=== PATIENT | female | born 1945 | race Asian ===

== ENCOUNTER 2020-01-19 19:16 | Emergency (ER) | payer MEDICARE, SELFPAY ==
--- NOTE | ~2020-01-19 | CT_ITS ---
EXAMINATION: CT brain wo con DATE: 01/19/2020 22:34 INDICATION: Dizziness TECHNIQUE: Computed tomography (CT) of the head was performed without intravenous contrast. Sagittal and coronal reconstructions were performed. The mA was adjusted according to patient size. Iterative reconstruction technique was employed. The dose-length product was 605.33 mGy-cm. COMPARISON: None FINDINGS: No acute intracranial hemorrhage, acute infarction or abnormal extra axial fluid collection. There is mild scattered white matter hypoattenuation consistent with chronic small vessel ischemic disease. S ymmetric prominence of the sulci and ventricles consistent with moderate age-appropriate diffuse cere bral volume loss. No mass/mass effect. Bilateral likely age-related basal ganglia calcifications. Ch anges of bilateral intraocular lens replacement. Chronic old blowout fracture of the medial wall of t he right orbit. Mucosal thickening the bilateral ethmoid and maxillary sinuses. Mastoid air cells and middle ear cavities are clear. Intracranial calcified cerebral atherosclerosis is noted. IMPRESSION: 1. No acute intracranial process. 2. Age-related changes including moderate diffuse volume loss and mild scattered white matter hypoatt enuation consistent with chronic small vessel ischemic disease. Reviewed, dictated and finalized at location A. IMPRESSION: 1. No acute intracranial process. 2. Age-related changes including moderate diffuse volume loss and mild scattere d white matter hypoattenuation consistent with chronic small vessel ischemic di sease.
[2020-01-19 19:26] VITALS: BP 208/77; PULSE 69; RESP 16; TEMP 36.4; O2SAT 100
--- NOTE | 2020-01-19 19:30 | ECG_ITS ---
Measurements Intervals [place] Rate: 64 P: 17 HI: 208 QRS: 22 QRSD: 93 T: -1 QT: 446 QTc: 463 Interpretive Statements SINUS RHYTHM VOLTAGE CRITERIA FOR LVH BORDERLINE T WAVE ABNORMALITY- INFERIOR LEADS BASELINE WANDER- I, II, III, V3 BORDERLINE ECG Electronically Signed On 01-20-2020 7:30:59 CDT by Luis Duke D.O.
[2020-01-19 19:45] LABS: Basophils Percent Auto 0.3 % (0.2-1.2); Eosinophils Absolute Auto 0.1 K/mm3 (0-0.3); Hematocrit 39.4 % (37.0-47.0); Hemoglobin 13.4 g/dL (12.0-15.0); Immature Granulocyte Absolute 0.02 K/mm3 (0.00-0.031); Immature Granulocyte Percent A 0.3 % (0-0.5); Lymphocytes Absolute Auto 1.86 K/mm3 (0.9-3.2); Lymphocytes Percent Auto 29.6 % (18.3-44.2); Mean Platelet Volume 10.1 fl (7.4-10.4); Monocytes Absolute Auto 0.5 K/mm3 (0.1-0.6); Monocytes Percent Auto 7.6 % (2.6-8.5); Neutrophils Absolute Auto 3.9 K/mm3 (1.3-6.7); Neutrophils Percent Auto 61.2 % (45.5-73.1); Platelet Count Result 229 k/mm3 (150-375); Red Blood Count 4.19 M/mm3 (4.2-5.4); Red Cell Distribution Width 12.6 % (11.5-14.5); White Blood Count 6.3 K/mm3 (4.5-10.0)
[2020-01-19 19:55] LABS: Anion Gap 10 mmol/L (8-16); Blood Urea Nitrogen 31 mg/dL (7-17); Calcium 9.3 mg/dL (8.4-10.2); Carbon Dioxide 26 mmol/L (22-30); Chloride 96 mmol/L (98-107); Estimated CRCL calculation 25 ml/min; Estimated Glomerular Filt Rate 32; Glucose 170 mg/dL (65-105); Potassium 3.4 mmol/L (3.4-5.0); Sodium 132 mmol/L (137-145)
[2020-01-19 21:30] VITALS: BP 224/91; PULSE 67
[2020-01-19 21:35] VITALS: BP 237/104; PULSE 71
[2020-01-19 21:38] VITALS: BP 236/99; PULSE 89
--- NOTE | 2020-01-19 21:38 | ED.DIZZY ---
HPI - Dizziness General Chief Complaint: Dizziness Stated Complaint: dizziness Time Seen by Provider: 01/19/20 21:16 Source: patient Mode of arrival: ambulatory Limitations: language barrier and dementia History of Present Illness HPI Narrative: This patient is a 74 year old Latvian female with history of dementia and hypertension who presents for evaluation of dizziness. Patient's states she has dementia and she is forgetting how to write Latvian and speak hungarian so he is helping with history. He states around 4 pm she was dizzy when she woke up from a nap. She described to nursing that she had spinning. She is laying in bed and she reports her symptoms have resolved. She denies any other symptoms. She is hypertensive and her states it is difficulty to get her to take her medication. Related Data Allergies Allergy/AdvReac Type Severity Reaction Status Date / Time No Known Allergies Allergy Unverified 12/19/16 16:35 Review of Systems Review of Systems: All systems reviewed & are unremarkable except as noted in HPI and below Constitutional: Constitutional: Denies chills and Denies fever(s) Eyes: Eyes: Reports no additional eye complaints ENT: Denies dysphagia, Denies epistaxis, Denies nasal congestion and Denies sore throat Cardiovascular: Cardiovascular: Denies chest pain Respiratory: Respiratory: Denies cough and Denies dyspnea Gastrointestinal: Gastrointestinal: Denies abdominal pain, Denies nausea and Denies vomiting Neurologic: Reports dizziness, Denies headache(s), Denies focal weakness, Denies numbness and Denies weakness PMFSH Past Medical History Medical History (Updated 01/20/20 @ 00:37 by Linh Marin MD) Arthritis Bilateral cataracts Chronic back pain Hip fracture, right HTN (hypertension) Sciatica Scoliosis Surgical History Surgical History (Updated 05/05/19 @ 16:22 by Moody Goodrich) History of cataract extraction with lens replacement Bilateral History of open reduction and internal fixation (ORIF) procedure Right hip Social History Social History (Updated 05/05/19 @ 16:22 by Moody Goodrich) Smoking status: Former smoker Gender identity (if verbalized by the patient): Female Exam Const: General: no acute distress and alert Other: oriented to person HENMT: Head: normocephalic and atraumatic Ears: TM's normal bilaterally General nose exam: Normal external nose present Face and sinus: normal facial exam and face symmetric Mouth: Yes Normal oral and palatal mucosa present and Yes lip normal Throat: posterior oropharynx normal, tonsils normal and uvula midline Eyes: Pupils: Equal, round and reactive pupils present EOM: EOMs intact bilaterally Chest: Chest palpation & inspection: normal inspection of the chest Resp: Effort & Inspection: normal respiratory effort and no retractions Auscultation: clear to auscultation bilaterally Cardio: Rate: regular rate Rhythm: regular rhythm Heart sounds: no murmurs GI: GI Palp: Yes Soft to palpation, No Firmness to palpation present (GI) and No Tenderness to palpation present (GI) Auscultation: normal bowel sounds Back/Spine/Pelvis: Back: no CVA tenderness Skin: General skin exam: normal color Rashes: no rashes Neuro: General: patient oriented x3, moves all extremities, no meningeal signs, no focal motor deficits and CN's II-XI intact bilaterally Cranial nerves: Yes Nystagmus not present Speech: normal speech Motor exam (neuro): 5/5 motor strength present throughout, Pronator motor function not present and No tremor noted Sensory Exam: normal sensation Coordination: [id number] test normal Course Reevaluation(s) Reevaluation #1: PAtient has no complaints. she always have high blood pressure. This is her baseline. I discussed with her they need to call her PCP on tuesday to get assessed for BP. Date: 01/20/20 Time: 00:33 Vital Signs Vital signs: Vital Signs Temperature 97.6 F 0
[2020-01-19 22:36] VITALS: PULSE 68
[2020-01-19] MEDS: METOPROLOL TARTRATE 50 MG TAB 25 MG PO (22:36)
[2020-01-19] MEDS: MECLIZINE HCL 25 MG TABLET PO (22:37)
[2020-01-19 23:30] VITALS: BP 197/88; PULSE 94; RESP 18; O2SAT 99
[2020-01-19] MEDS: amLODIPine BESYLATE 2.5 MG TABLET PO (23:54)
[2020-01-20 00:26] VITALS: BP 193/94; PULSE 55; RESP 14; O2SAT 99
[2020-01-20 00:45] VITALS: BP 147/78; PULSE 55; RESP 15; O2SAT 98
== END 2020-01-20 00:45 | disposition home or self-care (01) ==
PROVIDERS: Family Medicine; Emergency Provider General Practice; PCP Internal Medicine
DX: R42 Dizziness and giddiness (principal); I10 Essential (primary) hypertension; F03.90 Unspecified dementia, unspecified severity, without behavioral disturbance, psychotic disturbance, mood disturbance, and anxiety; M19.90 Unspecified osteoarthritis, unspecified site; Z98.42 Cataract extraction status, left eye; Z98.41 Cataract extraction status, right eye; Z96.1 Presence of intraocular lens; Z87.891 Personal history of nicotine dependence; R94.31 Abnormal electrocardiogram [ECG] [EKG]
CPT/HCPCS: 36415; 70450; 80048; 85025; 93005; 99284; A9270

== ENCOUNTER 2020-04-17 12:41 | Emergency (ER) | payer MEDICARE, SELFPAY ==
[2020-04-17 12:47] VITALS: BP 156/93; PULSE 64; RESP 16; TEMP 35.9; O2SAT 100
--- NOTE | 2020-04-17 13:51 | ED.DENTAL ---
HPI - Dental/Oral General Chief complaint: Dental/Oral Stated complaint: DENTAL PAIN Time Seen by Provider: 04/17/20 12:55 History of Present Illness HPI Narrative: Patient is a 74-year-old female who presents with dental pain and upper lip swelling. She had some dental work performed last week. She is post follow-up with her dentist on 04/22/2020. She made the appointment yesterday. Her upper lip is swelling and pain is radiating into her nose. She has had some blood come out of her lip earlier. No difficulty breathing or swallowing. No fevers or chills or sweats. Related Data Home Medications Medication Instructions Recorded Confirmed ergocalciferol (vitamin D2) 04/17/20 metoprolol succinate PO 04/17/20 oxybutynin chloride mg PO 04/17/20 pioglitazone mg 04/17/20 simvastatin mg 04/17/20 Allergies Allergy/AdvReac Type Severity Reaction Status Date / Time No Known Allergies Allergy Verified 04/17/20 13:03 Review of Systems Constitutional: Constitutional: Denies chills, Denies fever(s) and Denies weakness ENT: Comments: Lip and nose pain. Dental pain Respiratory: Respiratory: Denies cough and Denies dyspnea PMFSH Past Medical History Medical History (Updated 04/17/20 @ 13:59 by Jatin Salas MD) Arthritis Bilateral cataracts Chronic back pain Hip fracture, right HTN (hypertension) Sciatica Scoliosis Surgical History Surgical History (Updated 05/05/19 @ 16:22 by Moody Goodrich) History of cataract extraction with lens replacement Bilateral History of open reduction and internal fixation (ORIF) procedure Right hip Social History Social History (Updated 05/05/19 @ 16:22 by Moody Goodrich) Smoking status: Former smoker Gender identity (if verbalized by the patient): Female Exam Narrative: Exam Narrative: GENERAL: Well-appearing, well-nourished, and in no acute distress. HEAD: Normocephalic, atraumatic. ENT: Mucous membranes moist. Swelling to the upper lip. Abscess noted above tooth #8 and actively draining pus. Mild swelling into the nostrils bilaterally. NEURO: Alert and oriented x3. PSYCH: Normal mood and affect. Course Course Emergency Course: Augmentin and Simms for home. Vital Signs Vital signs: Vital Signs Temperature 96.6 F L 04/17/20 12:47 Pulse Rate 64 04/17/20 12:47 Respiratory Rate 16 04/17/20 12:47 Blood Pressure 156/93 H 04/17/20 12:47 Pulse Oximetry 100 04/17/20 12:47 Temperature 96.6 F L 04/17/20 12:47 Pulse Rate 64 04/17/20 12:47 Respiratory Rate 16 04/17/20 12:47 Blood Pressure 156/93 H 04/17/20 12:47 Pulse Oximetry 100 04/17/20 12:47 Discharge Plan Discharge Clinical Impression: Dental abscess Patient Disposition: Home, Self-Care Condition: Stable Instructions: Dental Abscess (ED) Additional Instructions: Return to the ER if you have chest pain or shortness of breath, you cannot keep down food or water, you lose consciousness, you have additional concerns. Prescriptions: New amoxicillin-pot clavulanate [Augmentin] 875-125 mg tablet 1 tablet PO Q12H Qty: 20 RF: 0 hydrocodone-acetaminophen 5-325 mg tablet 1 tablet PO Q6H PRN (Reason: pain) Qty: 20 RF: 0 No Action tramadol 50 mg tablet 50 mg PO Q6H PRN (Reason: pain) Qty: 20 RF: 0 meclizine 25 mg tablet 25 mg PO TID PRN (Reason: dizziness) Qty: 10 RF: 0 pioglitazone 15 mg tablet RF: 0 oxybutynin chloride 10 mg tablet extended release 24hr PO RF: 0 metoprolol succinate 50 mg tablet extended release 24 hr PO RF: 0 simvastatin 40 mg tablet RF: 0 ergocalciferol (vitamin D2) RF: 0 Follow-up/Referrals: Annette,Luis F Morgan MD [Primary Care Provider] - Stand Alone Forms: Work/School Release IP
[2020-04-17 14:27] VITALS: BP 142/87; PULSE 66; RESP 14; O2SAT 98
== END 2020-04-17 14:29 | disposition home or self-care (01) ==
PROVIDERS: Emergency Provider Emergency Medicine; PCP Internal Medicine
DX: K04.7 Periapical abscess without sinus (principal); M19.90 Unspecified osteoarthritis, unspecified site; I10 Essential (primary) hypertension; Z98.42 Cataract extraction status, left eye; Z98.41 Cataract extraction status, right eye; Z96.1 Presence of intraocular lens
CPT/HCPCS: 99283

== ENCOUNTER 2020-05-31 08:20 | Emergency (ER) | payer MEDICARE, SELFPAY ==
[2020-05-31] VITALS (11 sets, daily range): BP systolic 169–213; BP diastolic 68–116; PULSE 8–133; RESP 12–25; TEMP 36.3; O2SAT 93–99
--- NOTE | ~2020-05-31 | XR_ITS ---
EXAMINATION: XR hand LT min 3V DATE: 05/31/2020 09:06 INDICATION: Left fifth digit pain and bruising post fall TECHNIQUE: Posteroanterior, oblique and lateral views of the left hand were obtained. COMPARISON: None. FINDINGS: 1 mm distraction of a small intra-articular avulsion fracture along the dorsal rim of the base of the left second middle phalanx. There is overlying soft tissue swelling. There is flexion at the proxima l interphalangeal joint. Old healed fracture deformity of the fifth proximal phalanx. Otherwise reyna l alignment throughout the remainder of the hand with no other fractures identified. Mild to moderate polyarticular osteoarthritis most prominent at the first carpometacarpal and a few distal interphala ngeal joints. Diffuse osteopenia. A few scattered atherosclerotic calcifications. IMPRESSION: 1. Small minimally distracted dorsal plate avulsion fracture at the base of the left fifth middle pha lanx. Reviewed, dictated and finalized at location A. [place] TEACHER IMPRESSION: 1. Small minimally distracted dorsal plate avulsion fracture at the base of the left fifth middle phalanx.
--- NOTE | ~2020-05-31 | CT_ITS ---
EXAMINATION: CT cervical spine wo con DATE: 05/31/2020 10:48 INDICATION: Neck pain post fall with head injury TECHNIQUE: Computed tomography (CT) of the cervical spine was performed without intravenous contrast. Automated exposure control and iterative reconstruction technique were employed. The dose-length pro duct was 605.33 mGy-cm. COMPARISON: None FINDINGS: Minimal cervical fracture curvature and minimal kyphosis centered at C5-C6 where there is moderate di sc height loss and degenerative endplate change is severe bilateral uncovertebral osteoarthritis. Mod erate osteoarthritis at the atlantoaxial articulation with surrounding calcified pannus. Vertebral tila dy heights are normal. No acute fractures. Remaining disc heights are relatively preserved. Severe fa cet osteoarthritis on the right at C5-C6. Otherwise mild to moderate facet osteoarthritis remainder o f the cervical spine. Atherosclerotic calcification is at the bilateral carotid arteries. There is an subcutaneous edema tracking along the right posterior side of the neck caudal to the right parieto-o ccipital scalp hematoma which is more fully appreciated on the head CT. Likely benign 6 mm hypodense right thyroid nodule. Small amount of gas in the caudal right internal jugular vein and subclavian ve in likely related to peripheral IV placement. Cervical soft tissues are otherwise unremarkable. There are some smooth septal line thickening and mild dependent groundglass opacities at the bilateral api irma consistent with mild pulmonary edema. IMPRESSION: 1. Moderate cervical spondylosis. No acute osseous abnormality. 2. Previously described right parieto-occipital scalp hematoma which is more completely visualized on the head CT. 3. Mild pulmonary edema at the apices of the lungs. Reviewed, dictated and finalized at location A. [employer] APPLICATIONS DEVELOPER IMPRESSION: 1. Moderate cervical spondylosis. No acute osseous abnormality. 2. Previously described right parieto-occipital scalp hematoma which is more co mpletely visualized on the head CT. 3. Mild pulmonary edema at the apices of the lungs.
--- NOTE | ~2020-05-31 | CT_ITS ---
EXAMINATION: CT brain wo con DATE: 05/31/2020 10:48 INDICATION: Fall with head injury and nausea TECHNIQUE: Computed tomography (CT) of the head was performed without intravenous contrast. Sagittal and coronal reconstructions were performed. The mA was adjusted according to patient size. Iterative reconstruction technique was employed. The dose-length product was 605.33 mGy-cm. COMPARISON: head CT dated 06/20/19 FINDINGS: Large right parietal scalp hematoma. No calvarial fracture. No acute intracranial hemorrhage, acute i nfarction or abnormal extra axial fluid collection. There is mild scattered white matter hypoattenuat ion consistent with chronic small vessel ischemic disease. Symmetric prominence of the sulci and vent ricles consistent with moderate age-appropriate diffuse cerebral volume loss. Kinsinger bilateral lik diana age-related basal ganglia calcifications. Extra-axial 7 mm peripherally calcified nodule along th e inner table of the anterior most right parietal bone which could represent either a meningioma or b e related to mild hyperostosis frontalis which is seen anteriorly along the frontal bone. Changes of bilateral intraocular lens replacement. Chronic blowout fracture of the medial wall of the right orbi t. The callosal thickening in the right maxillary and bilateral ethmoid sinuses. Mastoid air cells an d middle ear cavities are clear. Intracranial calcified cerebral atherosclerosis is noted. IMPRESSION: 1. No acute fracture or acute intracranial process. 2. Age-related changes including moderate diffuse volume loss and mild scattered white matter hypoatt enuation consistent with chronic small vessel ischemic disease. 3. 7 mm peripherally calcified likely benign meningioma overlying the right frontal lobe. Reviewed, dictated and finalized at location A. ISH PROFESSOR IMPRESSION: 1. No acute fracture or acute intracranial process. 2. Age-related changes including moderate diffuse volume loss and mild scattere d white matter hypoattenuation consistent with chronic small vessel ischemic di sease. 3. 7 mm peripherally calcified likely benign meningioma overlying the ri ght frontal lobe.
--- NOTE | 2020-05-31 08:56 | ECG_ITS ---
Measurements Intervals [place] Rate: 122 P: [place]: 0 QRS: 84 QRSD: 91 T: -14 QT: 296 QTc: 422 Interpretive Statements ATRIAL FIBRILLATION WITH RAPID VENTRICULAR RESPONSE ST-T WAVE ABNORMALITY IN INF/LAT LEADS- CONSIDER ISCHEMIA ABNORMAL ECG Electronically Signed On 05-31-2020 14:18:36 E COMMERCE MANAGER by Luis Duke D.O.
--- NOTE | 2020-05-31 09:04 | ED.GENADULT ---
HPI - General Adult General Chief complaint: Head Injury Stated complaint: Head Injury Tuesday Time Seen by Provider: 05/31/20 08:46 History of Present Illness HPI narrative: Patient is a 75-year-old female who presents the emergency department with chief complaint of head injury. The patient reports that she fell approximately 2 days ago and reports that she has had a headache since then. Patient reports that she has felt extremely weak since then and also has a headache. She also reports that she injured her left fifth digit and has bruising present on the finger. Patient denies chest pain denies shortness of breath but does report that she has a nauseated feeling throughout her body. Patient reports that she has no prior history of dysrhythmia is currently just on an aspirin she reports that she did not take her blood pressure medication this morning. Related Data Home Medications Medication Instructions Recorded Confirmed aspirin 81 mg PO DAILY 05/31/20 atorvastatin 40 mg PO DAILY 05/31/20 cholecalciferol (vitamin D3) 25 mcg PO DAILY 05/31/20 finasteride 5 mg PO DAILY 05/31/20 metoprolol succinate 25 mg PO DAILY 05/31/20 Allergies Allergy/AdvReac Type Severity Reaction Status Date / Time No Known Allergies Allergy Verified 05/31/20 08:35 Review of Systems Review of Systems: Narrative: A 10 system review of systems was completed on the patient and is negative except for what is stated in the HPI. Nursing and ancillary documentation was reviewed. [facility] Past Medical History Medical History Arthritis Bilateral cataracts Chronic back pain Hip fracture, right HTN (hypertension) Sciatica Scoliosis Surgical History Surgical History History of cataract extraction with lens replacement Bilateral History of open reduction and internal fixation (ORIF) procedure Right hip Social History Social History Smoking status: Former smoker Gender identity (if verbalized by the patient): Female Exam Narrative: Exam Narrative: GENERAL: Well-appearing, well-nourished, and in no acute distress. HEAD: Normocephalic, atraumatic. There is tenderness to palpation in the occipital region of the scalp EYES: PERRLA and EOMI. ENT: Nares clear, no rhinorrhea or epistaxis. Mucous membranes moist. NECK: Supple. There is mild tenderness to palpation in the cervical spine no bony step-off noted. CHEST: Clear to auscultation. No respiratory distress. HEART: Irregularly irregular rate and rhythm with tachycardia. No murmur heard. Normal peripheral pulses. ABDOMEN: Soft, nontender, nondistended, normal active bowel sounds. EXTREMITIES: Normal range of motion. No edema. There is a deformity of the left fifth finger with bruising. SKIN: Warm, dry, no rash. NEURO: No focal deficits. Alert and oriented x3. PSYCH: Normal mood and affect. Course Course Emergency Course: Patient was admitted to the hospital. Prior to going upstairs the patient decided that she did not want to stay in the hospital she understood there was a risk of having a stroke or heart attack or . Vital Signs Vital signs: Vital Signs Temperature 36.3 C L 05/31/20 08:32 Pulse Rate 105 H 05/31/20 08:32 Respiratory Rate 18 05/31/20 08:32 Blood Pressure 213/116 H 05/31/20 08:32 Pulse Oximetry 99 05/31/20 08:32 Temperature 36.3 C L 05/31/20 08:32 Pulse Rate 90 05/31/20 16:11 Respiratory Rate 25 H 05/31/20 16:11 Blood Pressure 178/68 H 05/31/20 16:11 Pulse Oximetry 96 05/31/20 16:11 Medical Decision Making Vital Signs Vital Signs: Vital Signs Temperature 36.3 C L 05/31/20 08:32 Pulse Rate 105 H 05/31/20 08:32 Respiratory Rate 18 05/31/20 08:32 Blood Pressure 213/116 H 05/31/20 08:32 Pulse Oximetry 99 05/31/20 08:32
[2020-05-31] MEDS: SODIUM CHLORIDE 0.9% IV 1,000 ML 999 ML IV CONT (09:07)
[2020-05-31] MEDS: ONDANSETRON INJ 4 MG/2 ML VIAL IV PUSH (09:07)
[2020-05-31] MEDS: METOPROLOL TARTRATE INJ 5 MG/5 ML VIAL IV PUSH ×2 (09:09→13:00)
[2020-05-31 09:14] LABS: Basophils Percent Auto 0.4 % (0.2-1.2); Eosinophils Percent Auto 0.1 % (0-4.4); Hematocrit 37.6 % (37.0-47.0); Hemoglobin 12.5 g/dL (12.0-15.0); Immature Granulocyte Absolute 0.04 K/mm3 (0.00-0.031); Immature Granulocyte Percent A 0.6 % (0-0.5); Lymphocytes Absolute Auto 0.84 K/mm3 (0.9-3.2); Mean Corpuscular HGB Conc 33.2 g/dl (32-36); Mean Corpuscular Hemoglobin 31.7 pg (26-34); Mean Corpuscular Volume 95.4 fl (80-100); Mean Platelet Volume 9.9 fl (7.4-10.4); Monocytes Absolute Auto 0.4 K/mm3 (0.1-0.6); Monocytes Percent Auto 5.6 % (2.6-8.5); Neutrophils Absolute Auto 5.7 K/mm3 (1.3-6.7); Neutrophils Percent Auto 81.3 % (45.5-73.1); Platelet Count Result 191 k/mm3 (150-375); Red Blood Count 3.94 M/mm3 (4.2-5.4); Red Cell Distribution Width 13.2 % (11.5-14.5)
[2020-05-31 09:28] LABS: Lactic Acid Reflex 0.9 mmol/L (0.7-2.1)
[2020-05-31 09:29] LABS: Alanine Aminotransferase 13 U/L (4-35); Albumin Level 4.3 g/dL (3.5-5.1); Alkaline Phosphatase 64 U/L (38-126); Anion Gap 10 mmol/L (8-16); Aspartate Amino Transferase 31 U/L (14-36); Bilirubin,Total 0.9 mg/dL (0.2-1.3); Blood Urea Nitrogen 19 mg/dL (7-17); Calcium 9.5 mg/dL (8.4-10.2); Carbon Dioxide 27 mmol/L (22-30); Chloride 99 mmol/L (98-107); Estimated CRCL calculation 33 ml/min; Estimated Glomerular Filt Rate 48; Glucose 163 mg/dL (65-105); Potassium 3.8 mmol/L (3.4-5.0); Sodium 136 mmol/L (137-145)
[2020-05-31 09:33] LABS: INR 0.9; Prothrombin Time 12.9 Seconds (11.1-14.7)
[2020-05-31 09:34] LABS: Partial Thromboplastin Time 26.9 SECONDS (22.3-36.8)
[2020-05-31 09:39] LABS: Add Urine Microscopic? YES; Appearance Urine Clear (Clear); Bacteria Urine Trace /hpf; Bilirubin Urine Negative (Negative); Blood Urine Negative (Negative); Color Urine Straw (Yellow); Glucose Urine UA 1+ mg/dL (Negative); Ketones Urine Trace mg/dL (Negative); Leukocyte Esterase Ur Negative LEU/UL (Negative); Mucus Urine Rare /lpf; Nitrate Urine Negative (Negative); Protein Urine 2+ mg/dL (Negative); RBC Urine 0-2 /hpf (0-2); Specific Grav Ur 1.011 (1.001-1.035); Squamous Epithelial Cell Urine Occasional /hpf (Few); Urobilinogen Urine Negative mg/dL (<2.0); WBC Urine 0-3 /hpf
[2020-05-31] MEDS: ASPIRIN 81 MG CHEWABLE TABLET 324 MG PO (11:18)
== END 2020-05-31 16:11 | disposition left against medical advice (07) ==
PROVIDERS: Emergency Provider Emergency Medicine; PCP Internal Medicine
DX: S09.90XA Unspecified injury of head, initial encounter (principal); R79.89 Other specified abnormal findings of blood chemistry; I48.91 Unspecified atrial fibrillation; M19.90 Unspecified osteoarthritis, unspecified site; I10 Essential (primary) hypertension; Z98.42 Cataract extraction status, left eye; Z98.41 Cataract extraction status, right eye; Z96.1 Presence of intraocular lens; Z87.891 Personal history of nicotine dependence; Z79.82 Long term (current) use of aspirin; W19.XXXA Unspecified fall, initial encounter; R94.31 Abnormal electrocardiogram [ECG] [EKG]
CPT/HCPCS: 36415; 51701; 70450; 72125; 73130; 80053; 81001; 83605; 84484; 85025; 85610; 85730; 93005; 96361; 96374; 96375; 96376; 99284; A9270; J2405; J7030

== ENCOUNTER 2021-03-27 09:49 | Inpatient (IN) | payer MEDICARE, SELFPAY ==
[2021-03-27] VITALS (14 sets, daily range): BP systolic 95–135; BP diastolic 58–94; PULSE 64–121; RESP 16–28; TEMP 35.8–36.8; O2SAT 92–100; BMI 21.7
--- NOTE | 2021-03-27 | ECHO_ITS ---
Patient Info Name: Corine Mckeon Age: 75 years : 1945 Gender: Female Ht: 66 in Wt: 109 lbs BSA: 1.51 m2 HR: 68 bpm BP: 128 / 88 mmHg Technical Quality: Good Exam Date: 03/27/2021 4:14 PM Exam Location: [facility] Pulmonary Exam Room: ICU7 Patient Status: Inpatient Admit Date: 03/27/2021 Staff Ordering Physician: Luis Duke DO Media Analytics Manager: Melva Guzman RDCS Attending Provider: Elizabet Diaz MD Referring Physician: Srikanth NEWELL; Exam Type: CA echo doppler color flow Study Info Indications - nstemi Complete two-dimensional, color flow and Doppler transthoracic echocardiogram is performed. Summary 1. Complete two-dimensional, color flow and Doppler transthoracic echocardiogram is performed. 2. Left ventricular chamber dimension is mildly enlarged. 3. There is mildly increased left ventricular wall thickness. 4. Left ventricular systolic function is moderately reduced, estimated at 35-40%. 5. Global hypokinesis of left ventricle. 6. Ventricular septum is sigmoid shaped. No LVOT obstruction. 7. The left ventricular diastolic function is normal. However, tissue doppler is not performed. 8. Left atrial chamber dimension is severely enlarged. 9. The aortic valve is not well visualized. Cannot determine number of aortic valve leaflets. 10. There is moderate aortic valve sclerosis. 11. The mitral valve has moderately calcified leaflets and moderately calcified annulus. 12. There is moderate mitral valve regurgitation. 13. There is mild to moderate tricuspid valve regurgitation. 14. Mild pulmonary hypertension, estimated pulmonary arterial systolic pressure is 42 mmHg. 15. Small atheroma in anterior and posterior aortic root. 16. There is small circumferential pericardial effusion. Left Ventricle Ventricular septum is sigmoid shaped. No LVOT obstruction. The left ventricular diastolic function is normal. However, tissue doppler is not performed. Global hypokinesis of left ventricle. Left ventricular chamber dimension is mildly enlarged. Left ventricular systolic function is moderately reduced, estimated at 35-40%. There is mildly increased left ventricular wall thickness. Right Ventricle Right ventricular chamber dimension is normal. Right ventricular systolic function is normal. Left Atria Left atrial chamber dimension is severely enlarged. Right Atria Right atrial chamber dimension is normal. Aortic Valve There is no aortic valve regurgitation based on valve area and gradients. The aortic valve is not well visualized. Cannot determine number of aortic valve leaflets. There is no aortic valve stenosis based on valve area or gradients. In addition, dimensionless index 0.91 does not indicate significant aortic stenosis. There is moderate aortic valve sclerosis. Pulmonic Valve There is no pulmonic regurgitation. Mitral Valve The mitral valve has moderately calcified leaflets and moderately calcified annulus. There is no mitral valve stenosis. There is moderate mitral valve regurgitation. Tricuspid Valve There is mild to moderate tricuspid valve regurgitation. Mild pulmonary hypertension, estimated pulmonary arterial systolic pressure is 42 mmHg. Pericardium/Pleural No cardiac tamponade. There is small circumferential pericardial effusion. Inferior Vena Cava Normal inferior vena cava with >50% collapse upon inspiration consistent with normal right atrial pressure, 5 mmHg. Aorta Small atheroma in anterior and po
--- NOTE | ~2021-03-27 | XR_ITS ---
EXAMINATION: XR chest 2V DATE: 03/27/2021 10:33 INDICATION: Weakness TECHNIQUE: AP and lateral views of the chest are obtained. COMPARISON: 12/19/2016 FINDINGS: Cardiomegaly is diffuse interstitial pattern. Small pleural effusions are present. There is no pneumothorax. IMPRESSION: 1. Cardiomegaly with likely mild pulmonary edema. Reviewed, dictated and finalized at location B.
--- NOTE | ~2021-03-27 | CT_ITS ---
EXAMINATION: CT brain wo con INDICATION: Weakness and confusion COMPARISON: 05/31/2020 TECHNIQUE: Standard unenhanced head CT. The dose-length product (DLP) was 681.00 mGy-cm. The mA was a djusted according to patient size. Iterative reconstruction technique was employed. FINDINGS: There is no acute intraparenchymal hemorrhage. No evidence of acute infarction. Calcificati ons are noted in the bilateral basal ganglia. A stable, peripheral calcification in the anterior righ t parietal lobe could reflect a meningioma. There is mild periventricular and subcortical hypodensity probably related to small vessel ischemic disease. There is mild prominence of the sulci and ventric les related to cerebral atrophy. Intracranial calcified cerebral atherosclerosis is noted. There are no extra-axial collections. There is no mass effect or midline shift. Changes in the globes are likel y from ocular lens surgery. There is mucosal thickening of the paranasal sinuses. IMPRESSION: 1. No acute intracranial abnormality. 2. Age related findings. Reviewed, dictated and finalized at location B.
--- NOTE | 2021-03-27 10:06 | ECG_ITS ---
Measurements Intervals [place] Rate: 118 P: [place]: 0 QRS: 43 QRSD: 86 T: 158 QT: 300 QTc: 420 Interpretive Statements ATRIAL FIBRILLATION WITH RAPID VENTRICULAR RESPONSE ST-T WAVE ABNORMALITY IN LAT/HIGH LAT LEADS- CONSIDER ISCHEMIA ABNORMAL ECG Electronically Signed On 03-27-2021 11:17:51 CDT by Luis Duke D.O.
--- NOTE | 2021-03-27 10:20 | PC.NURSE ---
Pt taken to CT scan
[2021-03-27 10:25] LABS: Basophils Percent Auto 0.5 % (0.2-1.2); Eosinophils Percent Auto 0.3 % (0-4.4); Hematocrit 37.8 % (37.0-47.0); Hemoglobin 12.2 g/dL (12.0-15.0); Immature Granulocyte Absolute 0.03 K/mm3 (0.00-0.031); Immature Granulocyte Percent A 0.4 % (0-0.5); Lymphocytes Absolute Auto 0.91 K/mm3 (0.9-3.2); Lymphocytes Percent Auto 11.4 % (18.3-44.2); Mean Corpuscular HGB Conc 32.3 g/dl (32-36); Mean Corpuscular Hemoglobin 31.9 pg (26-34); Mean Platelet Volume 10.5 fl (7.4-10.4); Monocytes Absolute Auto 0.4 K/mm3 (0.1-0.6); Monocytes Percent Auto 4.5 % (2.6-8.5); Neutrophils Absolute Auto 6.6 K/mm3 (1.3-6.7); Neutrophils Percent Auto 82.9 % (45.5-73.1); Platelet Count Result 217 k/mm3 (150-375); Red Blood Count 3.82 M/mm3 (4.2-5.4); Red Cell Distribution Width 14.9 % (11.5-14.5)
--- NOTE | 2021-03-27 10:30 | ED.WEAKNESS ---
HPI - Weakness General Chief complaint: Weakness Stated complaint: Multiple Complaints, Flu Shot two days ago Time Seen by Provider: 03/27/21 10:06 Source: patient and family Mode of arrival: wheelchair Limitations: dementia History of Present Illness HPI Narrative: This is a 75-year-old female that presents to the emergency department for generalized weakness. Patient is a poor historian. A lot of history is gathered from her . Reportedly patient had her Covid vaccine and flu vaccine on Tuesday. She had been complaining of some soreness, but overall was doing okay. Today they were supposed to go on a trip and she felt like she was too weak to go. She did complain of some heartburn earlier today. Otherwise she has not had any localizing symptoms. does report history of dementia and that she is at her baseline. Patient denies fever, chest pain, shortness of breath, cough, vomiting, focal numbness or weakness, or dysuria. Related Data Home Medications Medication Instructions Recorded Confirmed metoprolol succinate 100 mg PO DAILY 05/31/20 03/27/21 calcitriol 0.25 mcg PO DAILY 03/27/21 03/27/21 ergocalciferol (vitamin D2) 50,000 unit PO WEEKLY 03/27/21 03/27/21 losartan 25 mg PO DAILY 03/27/21 03/27/21 oxybutynin chloride 10 mg PO DAILY 03/27/21 03/27/21 pioglitazone 15 mg PO DAILY 03/27/21 03/27/21 rosuvastatin 40 mg PO DAILY 03/27/21 03/27/21 Allergies Allergy/AdvReac Type Severity Reaction Status Date / Time No Known Allergies Allergy Verified 03/27/21 09:59 Review of Systems Review of Systems: CONSTITUTIONAL: Denies fever CARDIOVASCULAR: Denies chest pain, or edema. RESPIRATORY: Denies cough or dyspnea. GASTROINTESTINAL: Reports abdominal pain, nausea. Denies vomiting, or diarrhea. GENITOURINARY: Denies dysuria NEUROLOGIC: Reports generalized weakness. All systems reviewed & are unremarkable except as noted in HPI and below PMFSH Past Medical History Medical History (Updated 03/27/21 @ 15:01 by Charity Boyd PA-C) Arthritis Atrial fibrillation Bilateral cataracts Chronic back pain Dementia Dyslipidemia Hip fracture, right HTN (hypertension) Sciatica Scoliosis Surgical History Surgical History History of cataract extraction with lens replacement Bilateral History of open reduction and internal fixation (ORIF) procedure Right hip Family History Family History (Updated 03/27/21 @ 14:41 by Faye Webb NP) Unknown Family history unknown Sibling Accidental Involved in an explosion Social History Social History (Updated 03/27/21 @ 14:08 by Faye Webb NP) Social History: The patient lives at home with her who is the durable power litigation attorney associate for healthcare. 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 The patient quit smoking 50 years ago. She has 1 adopted child. No alcohol marijuana illicit drugs. Code status full code Smoking status: Former smoker Alcohol intake: never Substance use: never Gender identity (if verbalized by the patient): Female Spiritual care concerns: No Exam Narrative: GENERAL: Elderly, well-nourished, and in no acute distress. HEAD: Normocephalic, atraumatic. EYES: PERRLA and EOMI. ENT: Nares clear, no rhinorrhea or epistaxis. Mucous membranes moist. Oropharynx without tonsillar hypertrophy exudate or other lesions. Bilateral TMs pearly marshall non-bulging NECK: Supple. No adenopathy or masses. CHEST: Clear to auscultation. No respiratory distress. No wheezes rales or rhonchi HEART: Regular rate and rhythm. No murmur heard. Normal radial pulses. ABDOMEN: Soft, nontender, nondistended, normal active bowel sounds. EXTREMITIES: Normal range of motion. No edema. SKIN: Warm, dry, no rash. NEURO: No focal deficits. Alert and oriented x2. CN II-XII grossly intact PSYCH: Normal mood and affect Course Vital Signs Vital signs: Vital Signs Temperature 97.8 F
[2021-03-27] MEDS: PANTOPRAZOLE SODIUM IV 40 MG VIAL IV PUSH (10:40)
[2021-03-27] MEDS: SODIUM CHLORIDE 0.9% IV 500 ML 999 ML IV CONT (10:40)
[2021-03-27 10:44] LABS: INR 0.9; Prothrombin Time 12.1 Seconds (11.1-14.7)
[2021-03-27 10:45] LABS: Partial Thromboplastin Time 29.1 SECONDS (22.3-36.8)
[2021-03-27 10:50] LABS: Alanine Aminotransferase 22 U/L (4-35); Albumin Level 4.3 g/dL (3.5-5.1); Alkaline Phosphatase 62 U/L (38-126); Anion Gap 15 mmol/L (8-16); Aspartate Amino Transferase 85 U/L (14-36); Bilirubin,Total 0.5 mg/dL (0.2-1.3); Blood Urea Nitrogen 30 mg/dL (7-17); Calcium 9.8 mg/dL (8.4-10.2); Carbon Dioxide 17 mmol/L (22-30); Chloride 103 mmol/L (98-107); Estimated Glomerular Filt Rate 27; Glucose 168 mg/dL (65-110); Potassium 4.2 mmol/L (3.4-5.0); Sodium 135 mmol/L (137-145)
--- NOTE | 2021-03-27 10:50 | PC.NURSE ---
Pt unable to give urine sample at this time.
[2021-03-27 11:09] LABS: Lipase 58 U/L (23-300)
[2021-03-27] MEDS: dilTIAZem HCl INJ 25 MG/5 ML VIAL 10 MG IV PUSH (11:46)
[2021-03-27 11:57] LABS: Add Urine Microscopic? YES; Appearance Urine Cloudy (Clear); Bilirubin Urine Negative (Negative); Blood Urine 2+ (Negative); Color Urine Yellow (Yellow); Glucose Urine UA Negative (Negative); Ketones Urine Trace mg/dL (Negative); Leukocyte Esterase Ur Negative LEU/UL (Negative); Mucus Urine Rare /lpf; Nitrate Urine Negative (Negative); Protein Urine 2+ mg/dL (Negative); Specific Grav Ur 1.021 (1.001-1.035); Squamous Epithelial Cell Urine Rare /hpf (Few); Urobilinogen Urine Negative mg/dL (<2.0); WBC Urine 0-3 /hpf
--- NOTE | 2021-03-27 12:01 | PM.CNCAR ---
Assessment and Plan Assessment and plan (1) NSTEMI (non-ST elevated myocardial infarction): Code(s): I21.4 - Non-ST elevation (NSTEMI) myocardial infarction Status: Acute Assessment and Plan: Discuss risks/benefits/alternative treatment to left heart cath and she is agreeable to procedure. Start Heparin drip. On aspirin, Atorvastatin, Metoprolol. Will notify HCG for left heart cath. Obtain echo. (2) HTN (hypertension): Code(s): I10 - Essential (primary) hypertension Status: Acute Assessment and Plan: Stable. (3) Dyslipidemia: Code(s): E78.5 - Hyperlipidemia, unspecified Status: Acute Assessment and Plan: On Atorvastatin. (4) Atrial fibrillation: Code(s): I48.91 - Unspecified atrial fibrillation Status: Acute Assessment and Plan: [id number] 4. Will need to be anticoagulated but will plan after cath. Rate control with Cardizem drip and Metoprolol PO. History of Present Illness History of Present Illness Consult date/time: 03/27/21 12:01 Reason for consult: NSTEMI. 75 yr old woman presents to ER with her for chest pain and weakness. She has a recent diagnosis of atrial fibrillation in May 2020 but did not get admitted and left hospital at that time, hypertension, dyslipidemia, CKD stage IV, dementia. Reports that she had intermittent chest discomfort this morning thinking it was heartburn. She had a bite of a biscuit this morning to take with her medication. She reports feeling weak. She had Covid and flu vaccine last week. She is alert and oriented x2 but not to year or or birthdate. EKG shows Atrial fib with RVR at 118 bpm, ST-T wave abnormality in lat/high lat leads- consider ischemia. Troponin 0.28 then 4.69. Cr 1.8/GFR 27. Sodium 135. Reason For Visit: Multiple Complaints, Flu Shot two days ago Review of Systems Review of Systems: All systems reviewed & are unremarkable except as noted in HPI and below Constitutional: Constitutional: Reports as per HPI, Denies chills, Reports fatigue and Denies fever(s) Cardiovascular: Cardiovascular: Reports as per HPI, Reports chest pain, Denies leg edema and Denies lightheadedness Respiratory: Respiratory: Reports as per HPI and Denies dyspnea Gastrointestinal: Gastrointestinal: Reports as per HPI and Reports heartburn Genitourinary: Genitourinary: Reports as per HPI Musculoskeletal: Musculoskeletal: Reports as per HPI Neurologic: Reports as per HPI, Denies dizziness and Denies syncope [facility] Past Medical History Medical History (Updated 03/27/21 @ 12:07 by Luis Duke DO) Arthritis Bilateral cataracts Chronic back pain Hip fracture, right HTN (hypertension) Sciatica Scoliosis Surgical History Surgical History History of cataract extraction with lens replacement Bilateral History of open reduction and internal fixation (ORIF) procedure Right hip Social History Social History Smoking status: Former smoker Gender identity (if verbalized by the patient): Female Meds Home Medications and Allergies Home Medications Medication Instructions Recorded Confirmed Type aspirin 81 mg PO DAILY 05/31/20 History atorvastatin 40 mg PO DAILY 05/31/20 History cholecalciferol (vitamin D3) 25 mcg PO DAILY 05/31/20 History finasteride 5 mg PO DAILY 05/31/20 History metoprolol succinate 25 mg PO DAILY 05/31/20 History Allergies Allergy/AdvReac Type Severity Reaction Status Date / Time No Known Allergies Allergy Verified 03/27/21 09:59 Vital Signs Vital Signs - 24 hr 03/27/21 09:54 03/27/21 11:20 03/27/21 11:44 Temperature 97.8 F Pulse Rate 121 H 89 117 H Respiratory Rate 17 16 20 Blood Pressure 119/90 124/94 H 128/88 Pulse Oximetry 100 100 98 Exam Const: General: cooperative, healthy appearing and comfortable Resp: A
[2021-03-27 12:04] LABS: NT Pro B Type Natriuretic Pept 14200 pg/mL (5-100)
[2021-03-27] MEDS: HEPARIN SODIUM 5,000 UNITS/ML VIAL 3000 UNITS IV PUSH (12:15)
[2021-03-27] MEDS: HEPARIN SOD/D5W 100 UNITS/ML 25,000 UNITS/250 ML BAG 6 UNITS IV CONT (12:16)
[2021-03-27] MEDS: ASPIRIN 81 MG CHEWABLE TABLET 324 MG (12:37)
[2021-03-27] MEDS: ALBUTEROL SULFATE (*SP) INHALER 1 PUFF (12:38)
[2021-03-27] MEDS: CALCIUM GLUCONATE 1,000 MG/10 ML VIAL 1000 MG IV PUSH (12:38)
[2021-03-27] MEDS: LEVALBUTEROL HFA (*SP) 15 GM INHALER 2 PUFF INHALATION (12:38)
[2021-03-27 13:06] LABS: Magnesium 2.1 mg/dL (1.6-2.3)
[2021-03-27] MEDS: PROMETHAZINE HCL 25 MG/ML AMPUL 12.5 MG IV PUSH (13:06)
--- NOTE | 2021-03-27 13:50 | ECG_ITS ---
Measurements Intervals [place] Rate: 112 P: RI: 0 QRS: 83 QRSD: 88 T: -16 QT: 362 QTc: 495 Interpretive Statements ATRIAL FIBRILLATION WITH RAPID VENTRICULAR RESPONSE BORDERLINE ST-T WAVE ABNORMALITY- INF/LAT LEADS BASELINE ARTIFACT- AVR, AVL, AVF, V3-V6 ABNORMAL ECG Electronically Signed On 03-27-2021 14:39:48 CDT by Luis Duke D.O.
--- NOTE | 2021-03-27 13:55 | PM.IMHP ---
H&P: HPI History of Present Illness Date/Time: 03/27/21 13:55 this is a 75-year-old female patient who resides at home with her . She has a history of dementia. The patient was here earlier this morning but then signed out against medical advice. The brought her back to the emergency room for complaints of generalized weakness. The patient was complaining of severe acid reflux this morning. The is at the bedside answering questions. Reportedly the patient had a COVID vaccine and flu vaccine on Tuesday. The patient and her was supposed to go [place] this morning but she stated that she felt too weak to go. The patient is also complaining of shoulder pain and back pain. She is also complaining of nausea. She denies any fever chest pain. Patient's creatinine today is 1.8 and previously was 1.1 and 1.6. Initial troponin 0.280 and 3 hour troponin is 4.690. BNP [address]. Head CT was read as no acute intracranial abnormality. Age-related findings. Chest x-ray was read as cardiomegaly with likely mild pulmonary edema. Cardiology has been consulted. Cardiology has seen the patient in the emergency room and recommended that the [facility] see the patient for possible cardiac catheterization. EKG was read as atrial fibrillation with rapid ventricular response. The patient has a previous history of atrial fibrillation. The patient was started on IV fluids, Protonix, Cardizem IV push x1, heparin drip, and Xopenex nebulizer treatment for wheezing. The patient was given calcium gluconate to reverse the effects of the beta-yassine that she took this morning. She was also given Phenergan IV for nausea. Carpet Finishing Supervisor has been consulted as well. The patient is being admitted to inpatient services on the date of service of 03/27/2021. Chief Complaint: Weakness Review of Systems Review of Systems: ROS unobtainable: Yes unobtainable due to mental status ( answering questions.) Constitutional: Constitutional: Reports as per HPI and Reports no additional constitutional complaints Eyes: Eyes: Reports as per HPI and Reports no additional eye complaints ENT: Reports system reviewed and no additional complaints, except as documented and Reports Normal hearing present Cardiovascular: Cardiovascular: Reports no additional cardiovascular complaints Respiratory: Respiratory: Reports no additional respiratory complaints and Reports no additional respiratory complaints Gastrointestinal: Gastrointestinal: Reports as per HPI and Reports no additional gastrointestinal complaints Musculoskeletal: Musculoskeletal: Reports no additional musculoskeletal complaints Integumentary/Breasts: Skin/Breast: Reports system reviewed and no additional complaints, except as docu and Reports as per HPI Neurologic: Reports system reviewed and no additional complaints, except as documented, Reports as per HPI and Reports Normal hearing present Psychiatric: Psychiatric: Reports no additional psychiatric complaints and Reports as per HPI Endocrine: Endocrine: Reports no additional endocrine complaints Hematologic/Lymphatic: Hematologic/Lymphatic: Reports no additional hematologic/lymphatic complaints Allergic/Immunologic: Allergic/Immunologic: Reports no additional allergic/immunologic complaints [facility] Past Medical History Medical History (Updated 03/27/21 @ 14:39 by Faye Webb NP) Arthritis Atrial fibrillation Bilateral cataracts Chronic back pain Dementia Dyslipidemia Hip fracture, right HTN (hypertension) Sciatica Scoliosis Surgical History Surgical History History of cataract extraction with lens replacement Bilateral History of open reduction and internal fixation (ORIF) procedure Right hip Family History Family History (Updated 03/27/21 @ 14:41 by Faye Webb NP) Unknown Family history unknown Sibling Accidental Involved in a
--- NOTE | 2021-03-27 14:01 | WPDCNINT ---
Assessment and Plan Assessment and plan (1) NSTEMI (non-ST elevated myocardial infarction): Code(s): I21.4 - Non-ST elevation (NSTEMI) myocardial infarction Status: Acute Assessment and Plan: patient complained of heartburn and pain in her on this morning and her troponin came back at 4.69. EKG shows AFib with ST depression cardiology consulted serial troponins aspirin, heparin infusion, statin hold beta-yassine at this time due to incidence of pauses in ER check echocardiogram (2) Atrial fibrillation: Code(s): I48.91 - Unspecified atrial fibrillation Status: Acute Assessment and Plan: patient received a dose of Cardizem and developed sinus pauses as per ED physician. Currently rate is controlled. I will use p.r.n. IV Lopressor for rate control at this time. Heparin infusion (3) HTN (hypertension): Code(s): I10 - Essential (primary) hypertension Status: Acute Assessment and Plan: blood pressure is controlled at this time treat with p.r.n. labetalol orhydralazine (4) Dyslipidemia: Code(s): E78.5 - Hyperlipidemia, unspecified Status: Acute Assessment and Plan: statin (5) CHF (congestive heart failure): Code(s): I50.9 - Heart failure, unspecified Status: Acute Assessment and Plan: chest x-ray shows mild pulmonary edema patient currently on room air. In light of elevated creatinine and also that patient may be going for cardiac catheterization and receiving contrast I will hold Lasix at this time and monitor (6) Acute kidney injury superimposed on chronic kidney disease: Code(s): N17.9 - Acute kidney failure, unspecified; N18.9 - Chronic kidney disease, unspecified Status: Acute Assessment and Plan: last recorded creatinine from May is 1.1. Appears to have history of chronic kidney disease. Current creatinine is 1.8. she also has mild metabolic acidosis As patient is likely going for cardiac catheterization we will start her on cautious IV fluids with bicarb 14 protection Additional Plan DVT prophylaxis - patient is currently on heparin infusion Stress ulcer prophylaxis - Nutrition - NPO at this time Code Status - I spoke to patient's and he requests patient to be full code this time. Also updated him with patient's current status, current information we have, current treatment plan and answered all his questions Total Critical Care Time - 40 minutes Due to a high probability of clinically significant, life threatening deterioration, the patient required my highest level of preparedness to intervene emergently and I personally spent this critical care time directly and personally managing the patient. This critical care time included obtaining a history; examining the patient; pulse oximetry; ordering and review of studies; arranging urgent treatment with development of a management plan; evaluation of patient's response to treatment; frequent reassessment; and discussions with other providers. It was exclusive of separately billable procedures and treating other patients and teaching time. 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 Patient herself is a poor historian secondary to dementia and unable to provide any meaningful history. History is provided by at bedside who told me that patient has very poor memory and does not even remember what she ate for breakfast. He said that she has not been feeling well and did complain of heartburn and pain in her arms this morning Hence he bro
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
--- NOTE | 2021-03-27 14:36 | ADMGEN ---
This patient, Corine Mckeon, was admitted to Intensive Care Unit-7. Patient/family oriented to hospital policies and general routines including ID bracelet, bed and alarms, visiting hours, pain management, procedures, bathroom and other care routines, personal items, smoking policy, room service/diet, and visiting hours. Information on how to activate the Rapid Response Team has been discussed. Patient/Family are encouraged to report perceived risks to care and to ask questions if they do not understand what they are told or what they should do.
[2021-03-27] MEDS: SODIUM BICARBONATE 8.4% 150 MEQ in WATER, STERILE FOR INJECTION 950 ML 100 MEQ IV CONT (15:01)
[2021-03-27 17:41] LABS: Glucose Point of Care 128 mg/dl (65-105)
[2021-03-27 19:41] LABS: Partial Thromboplastin Time 102.1 SECONDS (22.3-36.8)
[2021-03-27 22:03] LABS: Glucose Point of Care 131 mg/dl (65-105)
[2021-03-28] VITALS (16 sets, daily range): BP systolic 96–151; BP diastolic 43–82; PULSE 66–84; RESP 16–22; TEMP 36.5–36.9; O2SAT 91–100
[2021-03-28 02:42] LABS: Alanine Aminotransferase 37 U/L (4-35); Albumin Level 3.6 g/dL (3.5-5.1); Alkaline Phosphatase 54 U/L (38-126); Anion Gap 10 mmol/L (8-16); Aspartate Amino Transferase 367 U/L (14-36); Bilirubin,Total 0.4 mg/dL (0.2-1.3); Blood Urea Nitrogen 33 mg/dL (7-17); Calcium 9.1 mg/dL (8.4-10.2); Carbon Dioxide 23 mmol/L (22-30); Chloride 100 mmol/L (98-107); Estimated CRCL calculation 21 ml/min; Estimated Glomerular Filt Rate 31; Glucose 126 mg/dL (65-110); Magnesium 2.3 mg/dL (1.6-2.3); Potassium 3.7 mmol/L (3.4-5.0); Sodium 133 mmol/L (137-145)
[2021-03-28 02:45] LABS: Hematocrit 36.2 % (37.0-47.0); Hemoglobin 11.1 g/dL (12.0-15.0); Mean Corpuscular HGB Conc 30.7 g/dl (32-36); Mean Corpuscular Hemoglobin 31.8 pg (26-34); Mean Corpuscular Volume 103.7 fl (80-100); Mean Platelet Volume 10.8 fl (7.4-10.4); Platelet Count Result 215 k/mm3 (150-375); Red Blood Count 3.49 M/mm3 (4.2-5.4); Red Cell Distribution Width 15.1 % (11.5-14.5); White Blood Count 9.7 K/mm3 (4.5-10.0)
[2021-03-28 02:50] LABS: Partial Thromboplastin Time 79.6 SECONDS (22.3-36.8)
--- NOTE | 2021-03-28 08:00 | ECG_ITS ---
Measurements Intervals [place] Rate: 73 P: 35 [place]: 187 QRS: 73 QRSD: 86 T: 14 QT: 391 QTc: 433 Interpretive Statements SINUS RHYTHM ATRIAL PREMATURE COMPLEX DELAYED PRECORDIAL R/S TRANSITION ST-T WAVE ABNORMALITY IN LAT/HIGH LAT LEADS- CONSIDER ISCHEMIA BASELINE WANDER- I, III, V4-V6 ABNORMAL ECG Electronically Signed On 03-28-2021 8:31:38 CDT by Luis Duke D.O.
--- NOTE | 2021-03-28 08:32 | ECG_ITS ---
Measurements Intervals [place] Rate: 77 P: 19 [place]: 185 QRS: 55 QRSD: 82 T: 12 QT: 396 QTc: 449 Interpretive Statements SINUS RHYTHM ATRIAL PREMATURE COMPLEX ST-T WAVE ABNORMALITY IN HIGH LATERAL LEADS- CONSIDER ISCHEMIA BASELINE ARTIFACT- III, V6 ABNORMAL ECG Electronically Signed On 03-31-2021 5:52:02 PRESSER MACHINE by Luis Duke D.O.
--- NOTE | 2021-03-28 08:36 | PM.PNCARD ---
Progress Note: A&P Assessment and Plan (1) NSTEMI (non-ST elevated myocardial infarction): Code(s): I21.4 - Non-ST elevation (NSTEMI) myocardial infarction Status: Acute Assessment and Plan: She definitely had an ACS event, namely a NSTEMI. Her symptoms were atypical and she is clinically is stable and no longer having chest pains. Discuss risks/benefits/alternative treatment to left heart cath and she and her were agreeable to procedure on 03/27/21. Started Heparin drip. On aspirin, Atorvastatin, Metoprolol. Notified [facility] [place] on 03/27/21 for left heart cath and was seen by Dr. Butler. Appreciate him seeing her from an interventional cardiology standpoint. Please refer to his consult note for further details as to why she is not taken to the record label internship. Will treat her medically. Echo shows mild LVE, EF 35-40%, global hypokinesis, mild LVH, severe LAE, mod MR, mild-mod TR, small pericardial effusion. Continue heparin drip for 24 hours after troponin peaks. (2) HTN (hypertension): Code(s): I10 - Essential (primary) hypertension Status: Chronic Assessment and Plan: Stable. (3) Dyslipidemia: Code(s): E78.5 - Hyperlipidemia, unspecified Status: Chronic Assessment and Plan: On Atorvastatin. (4) Atrial fibrillation: Qualifiers: Atrial fibrillation type: unspecified Qualified Code(s): I48.91 - Unspecified atrial fibrillation Code(s): I48.91 - Unspecified atrial fibrillation Status: Chronic Assessment and Plan: [id number] 4. Will need to be anticoagulated but will plan after cath. Rate control with Metoprolol tartate 5 mg IV prn. She has spontaneously converted back to sinus rhythm. Would change Metoprolol IV to PO 50 mg every 12 hours. Subjective Date/time seen: 03/28/21 08:36 Denies any chest pain or sob. She is confused and apparently her baseline as she is alert today. She does not know the year. Exam Const: General: cooperative, healthy appearing and comfortable Resp: Auscultation: clear to auscultation bilaterally, no crackles, no rales, no rhonchi and no wheezes Cardio: Jugular venous distension: no JVD Rate: regular rate Rhythm: regular rhythm Heart sounds: no murmurs Peripheral pulses: dorsalis pedis present GI: GI Palp: No abdominal tenderness and Yes Soft to palpation Neuro: General: oriented to person, oriented to place and No oriented to time Extrem: Right lower extremity: no edema Left lower extremity: no edema Objective Data Vital Signs Vital Signs: Vital Signs - 24 hr 03/27/21 09:54 03/27/21 11:20 03/27/21 11:44 Temperature 97.8 F Pulse Rate 121 H 89 117 H Respiratory Rate 17 16 20 Blood Pressure 119/90 124/94 H 128/88 Pulse Oximetry 100 100 98 03/27/21 12:13 03/27/21 12:32 03/27/21 13:00 Temperature Pulse Rate 72 76 102 H Respiratory Rate 18 18 20 Blood Pressure 108/58 L 96/60 L 109/69 Pulse Oximetry 92 99 97 03/27/21 13:30 03/27/21 14:00 03/27/21 14:30 Temperature 96.4 F L Pulse Rate 102 H 103 H 73 Respiratory Rate 16 20 22 H Blood Pressure 126/70 123/71 131/73 Pulse Oximetry 98 100 97 03/27/21 14:42 03/27/21 16:00 03/27/21 18:00 Temperature 98.3 F Pulse Rate 87 71 70 Respiratory Rate 18 20 Blood Pressure 123/59 L 95/72 L Pulse Oximetry 95 98 03/27/21 20:00 03/27/21 22:00 03/28/21 00:00 Temperature 98.1 F Pulse Rate 64 70 66 Respiratory Rate 28 H 16 18 Blood Pressure 95/72 L 135/60 142/58 H Pulse Oximetry 98 99 91 03/28/21 02:00 03/28/21 04:00 03/28/21 06:00 Temperature 97.7 F Pulse Rate 69 73 73 Respiratory Rate 16 22 H 20 Blood Pressure 143/71 H 138/65 151/70 H Pulse Oximetry 94 94 97 Intake/Output Intake/Output: Intake & Output 03/25/21 03/26/21 03/27/21 03/28/21 23:59 23:59 23:59 23:59 Intake Total 860 0 Output Total 100 Balance 760 0 Meds/Results Medications: Active Medications Generic Name Dose Route Start Last Ad
--- NOTE | 2021-03-28 08:37 | WPDINTPN ---
Progress Note: A&P Assessment and Plan (1) NSTEMI (non-ST elevated myocardial infarction): Code(s): I21.4 - Non-ST elevation (NSTEMI) myocardial infarction Status: Acute Assessment and Plan: patient complained of heartburn and pain in her on this morning and her troponin came back at 4.69. EKG showed AFib with ST depression cardiology consulted and at this time plan is for conservative management serial troponins are being done until they plateau Patient is on aspirin, heparin infusion, statin hold scheduled beta-yassine at this time due to incidence of pauses in ER but is on p.r.n. check echocardiogram (2) Atrial fibrillation: Qualifiers: Atrial fibrillation type: unspecified Qualified Code(s): I48.91 - Unspecified atrial fibrillation Code(s): I48.91 - Unspecified atrial fibrillation Status: Chronic Assessment and Plan: patient received a dose of Cardizem and developed sinus pauses as per ED physician. She converted to sinus rhythm overnight Continue p.r.n. IV Lopressor for rate control at this time. Heparin infusion (3) HTN (hypertension): Code(s): I10 - Essential (primary) hypertension Status: Chronic Assessment and Plan: blood pressure is controlled at this time treat with p.r.n. Lopressor or hydralazine (4) Dyslipidemia: Code(s): E78.5 - Hyperlipidemia, unspecified Status: Chronic Assessment and Plan: statin (5) CHF (congestive heart failure): Qualifiers: Heart failure chronicity: unspecified Heart failure type: unspecified Qualified Code(s): I50.9 - Heart failure, unspecified Code(s): I50.9 - Heart failure, unspecified Status: Acute Assessment and Plan: chest x-ray showed mild pulmonary edema patient currently on room air with no respiratory distress In light of elevated creatinine and also that patient may be going for cardiac catheterization and receiving contrast I will hold Lasix at this time and monitor (6) Acute kidney injury superimposed on chronic kidney disease: Code(s): N17.9 - Acute kidney failure, unspecified; N18.9 - Chronic kidney disease, unspecified Status: Acute Assessment and Plan: Patient presented with creatinine 1.8. last recorded creatinine from May is 1.1. Appears to have history of chronic kidney disease. She was given 1 L of sodium bicarb IV fluids and creatinine today is 1.6 Monitor urine output electrolytes and creatinine Additional Plan DVT prophylaxis - patient is currently on heparin infusion Nutrition -advance diet Code Status - I spoke to patient's and he requests patient to be full code this time. Also updated him with patient's current status, current information we have, current treatment plan and answered all his questions Incentive spirometry, up in chair Transfer out of ICU today Subjective Date/time seen: 03/28/21 08:37 Patient with more awake today and answers questions and follows commands. She does not know where she is or why she is in the hospital. He denies any chest pain shortness of breath cough or abdominal pain. She states she feels tired. She does not where she lives but she can tell me her name and her 's name. Limited review of system was obtained and was negative. Patient is afebrile she converted to normal sinus rhythm overnight. Continues to be on heparin infusion. Other vital signs are stable Review of Systems Review of Systems: All systems reviewed & are unremarkable except as noted in HPI and below (Subjective) Exam Narrative: General: Pt is awake but confused Lungs/Chest: Trachea central Clear BS B/L, few bibasilar crackles. Cardiac: RRR. Normal S1 S2. No murmurs Circulation: Pedal pulses are intact and symmetrical. Abdomen: Normal bowel sounds. Soft. NT. ND. Extremities: No clubbing, cyanosis or edema. Warm : Cody in place Neurologic: Follows commands, intermittently Mo
[2021-03-28 08:54] LABS: Glucose Point of Care 104 mg/dl (65-105)
[2021-03-28] MEDS: METOPROLOL TARTRATE 25 MG TABLET PO ×2 (09:55→20:32)
[2021-03-28] MEDS: ROSUVASTATIN 10 MG TABLET 40 MG PO (09:56)
[2021-03-28] MEDS: ASPIRIN 325 MG TABLET PO (09:56)
--- NOTE | 2021-03-28 13:51 | PM.IMPN ---
Progress Note: A&P Assessment and Plan (1) NSTEMI (non-ST elevated myocardial infarction): Code(s): I21.4 - Non-ST elevation (NSTEMI) myocardial infarction Status: Acute Assessment and Plan: With atypical symptoms presented with generalized weakness Cardiology has been consulted On heparin drip Planned to be treated medically Echo with mild LV dysfunction EF 35-40% global hypokinesis mild LVH severe LA 80 moderate MR [id number] TR small pericardial effusion. Troponin peak 57 Currently on aspirin and atorvastatin On p.r.n. beta-yassine due to incidence of pauses (2) Acute kidney injury superimposed on chronic kidney disease: Code(s): N17.9 - Acute kidney failure, unspecified; N18.9 - Chronic kidney disease, unspecified Status: Acute Assessment and Plan: Patient's creatinine is 1.8 on admission. Baseline creatinine of 1.1 Continue to monitor slightly better today (3) CHF (congestive heart failure): Qualifiers: Heart failure chronicity: unspecified Heart failure type: unspecified Qualified Code(s): I50.9 - Heart failure, unspecified Code(s): I50.9 - Heart failure, unspecified Status: Acute Assessment and Plan: Echo with LV dysfunction. Cardiomegaly with mild pulmonary edema was noted on her chest x-ray. Diuresis per Cardiology (4) Atrial fibrillation: Qualifiers: Atrial fibrillation type: unspecified Qualified Code(s): I48.91 - Unspecified atrial fibrillation Code(s): I48.91 - Unspecified atrial fibrillation Status: Chronic Assessment and Plan: Rate controlled. The patient was given a dose of IV Cardizem. Which converted her back to sinus rhythm and remains in sinus rhythm. The patient is currently on heparin drip. (5) Dementia: Code(s): F03.90 - Unspecified dementia without behavioral disturbance Status: Chronic Assessment and Plan: The patient lives at home with her . She is currently not on any medication for dementia. However the stated that her short-term memory is declining. (6) Dyslipidemia: Code(s): E78.5 - Hyperlipidemia, unspecified Status: Chronic Assessment and Plan: Atorvastatin. (7) HTN (hypertension): Code(s): I10 - Essential (primary) hypertension Status: Chronic Assessment and Plan: P.r.n. hydralazine. Additional Plan DVT prophylaxis on heparin drip PT OT Subjective Date/time seen: 03/28/21 13:51 Interval history: HPI: this is a 75-year-old female patient who resides at home with her . She has a history of dementia. The patient was here earlier this morning but then signed out against medical advice. The brought her back to the emergency room for complaints of generalized weakness. The patient was complaining of severe acid reflux this morning. The is at the bedside answering questions. Reportedly the patient had a COVID vaccine and flu vaccine on Tuesday. The patient and her was supposed to go to [facility] this morning but she stated that she felt too weak to go. The patient is also complaining of shoulder pain and back pain. She is also complaining of nausea. She denies any fever chest pain. Patient's creatinine today is 1.8 and previously was 1.1 and 1.6. Initial troponin 0.280 and 3 hour troponin is 4.690. BNP [address]. Head CT was read as no acute intracranial abnormality. Age-related findings. Chest x-ray was read as cardiomegaly with likely mild pulmonary edema. Cardiology has been consulted. Cardiology has seen the patient in the emergency room and recommended that the [facility] group see the patient for possible cardiac catheterization. EKG was read as atrial fibrillation with rapid ventricular response. The patient has a previous history of atrial fibrillation. The patient was started on IV fluids, Protonix, Cardizem IV push x1, heparin drip, and Xopenex nebulizer treatment for
--- NOTE | 2021-03-28 23:06 | PC.NURSE ---
This patient, Corine Mckeon, was transferred to [[id number] ] on 03/28/21 at 2306. Personal belongings sent with patient. Report given to [Mimi REID ]. Appropriate documentation sent with patient.
--- NOTE | 2021-03-28 23:30 | PC.NURSE ---
This patient, Corine Mckeon, was received from [ICU-7] on 03/28/21 at 2310. Received report from FRANKLIN Edwards. Patient/family oriented to unit policies and routines
[2021-03-29] VITALS (18 sets, daily range): BP systolic 97–120; BP diastolic 43–78; PULSE 68–151; RESP 16–20; TEMP 36–37.6; O2SAT 95–99
--- NOTE | 2021-03-29 02:07 | PC.NURSE ---
Daylight Savings Time For Daylight Savings Time Ending in the Fall - Clocks are moved back. For Daylight Savings Time Beginning in the Spring - Clocks are moved ahead. For [facility], the time of change occurs at 0200 hrs. Time is taken from the mate ship. This entry on the patient's chart recognizes the change in time reflected during documentation. Example: 2 entries for vital signs may be charted for 0200 hrs.
[2021-03-29] MEDS: HEPARIN SOD/D5W 100 UNITS/ML 25,000 UNITS/250 ML BAG 6 UNITS IV CONT (05:48)
[2021-03-29 06:10] LABS: Hematocrit 33.3 % (37.0-47.0); Mean Corpuscular Hemoglobin 31.3 pg (26-34); Mean Corpuscular Volume 94.6 fl (80-100); Mean Platelet Volume 11.1 fl (7.4-10.4); Platelet Count Result 215 k/mm3 (150-375); Red Blood Count 3.52 M/mm3 (4.2-5.4); Red Cell Distribution Width 14.9 % (11.5-14.5); White Blood Count 7.6 K/mm3 (4.5-10.0)
[2021-03-29 06:26] LABS: Alanine Aminotransferase 39 U/L (4-35); Albumin Level 3.3 g/dL (3.5-5.1); Alkaline Phosphatase 50 U/L (38-126); Anion Gap 4 mmol/L (8-16); Aspartate Amino Transferase 225 U/L (14-36); Bilirubin,Total 0.5 mg/dL (0.2-1.3); Blood Urea Nitrogen 41 mg/dL (7-17); Calcium 8.7 mg/dL (8.4-10.2); Carbon Dioxide 28 mmol/L (22-30); Chloride 99 mmol/L (98-107); Estimated CRCL calculation 18 ml/min; Estimated Glomerular Filt Rate 27; Glucose 133 mg/dL (65-110); Magnesium 2.6 mg/dL (1.6-2.3); Potassium 4.3 mmol/L (3.4-5.0); Sodium 131 mmol/L (137-145)
[2021-03-29 06:37] LABS: Partial Thromboplastin Time 58.8 SECONDS (22.3-36.8)
--- NOTE | 2021-03-29 07:50 | PM.PNCARD ---
Progress Note: A&P Assessment and Plan (1) NSTEMI (non-ST elevated myocardial infarction): Code(s): I21.4 - Non-ST elevation (NSTEMI) myocardial infarction Status: Acute Assessment and Plan: She definitely had an ACS event, namely a NSTEMI. Her symptoms were atypical and she is clinically stable and no longer having chest pains. Discuss risks/benefits/alternative treatment to left heart cath and she and her were agreeable to procedure on 03/27/21. Started Heparin drip. On aspirin, Atorvastatin, Metoprolol. Notified [facility] [place] on 03/27/21 for left heart cath and was seen by Dr. Butler. Appreciate him seeing her from an interventional cardiology standpoint. Please refer to his consult note for further details as to why she is not taken to the chemical laboratory chief. Will treat her medically. Echo shows mild LVE, EF 35-40%, global hypokinesis, mild LVH, severe LAE, mod MR, mild-mod TR, small pericardial effusion. Continue heparin drip for 24 hours after troponin peaks. Troponin peaked at 57 on 03/28/21 at 2 pm. Will stop Heparin drip at 2 pm today. Start Brilinta 90 mg every 12 hours and decrease aspirin 81 mg daily. (2) HTN (hypertension): Code(s): I10 - Essential (primary) hypertension Status: Chronic Assessment and Plan: Stable. (3) Dyslipidemia: Code(s): E78.5 - Hyperlipidemia, unspecified Status: Chronic Assessment and Plan: On Atorvastatin. (4) Atrial fibrillation: Qualifiers: Atrial fibrillation type: unspecified Qualified Code(s): I48.91 - Unspecified atrial fibrillation Code(s): I48.91 - Unspecified atrial fibrillation Status: Chronic Assessment and Plan: [id number] 4. Will need to be anticoagulated but has been on heparin drip for NSTEMI. Rate control was with Metoprolol tartate 5 mg IV prn. She has spontaneously converted back to sinus rhythm within a day of admission. On Metoprolol Tartate 25 mg PO every 12 hours. Will hold off on anticoagulation since she is going on dual antiplatelet agents with aspirin and Brilinta. Subjective Date/time seen: 03/29/21 07:50 Denies chest pain or sob. Exam Const: General: cooperative, healthy appearing and comfortable Resp: Auscultation: clear to auscultation bilaterally, no crackles, no rales, no rhonchi and no wheezes Cardio: Jugular venous distension: no JVD Rate: regular rate Rhythm: regular rhythm Heart sounds: no murmurs Peripheral pulses: dorsalis pedis present GI: GI Palp: No abdominal tenderness and Yes Soft to palpation Neuro: General: oriented to person, oriented to place and No oriented to time Extrem: Right lower extremity: no edema Left lower extremity: no edema Objective Data Vital Signs Vital Signs: Vital Signs - 24 hr 03/28/21 09:55 03/28/21 09:56 03/28/21 10:00 Temperature Pulse Rate 77 80 Respiratory Rate 18 Blood Pressure 132/66 Pulse Oximetry 95 96 03/28/21 12:00 03/28/21 14:00 03/28/21 16:00 Temperature 98.0 F 97.7 F Pulse Rate 71 72 76 Respiratory Rate 16 20 Blood Pressure 96/61 L 125/53 L Pulse Oximetry 94 94 03/28/21 18:00 03/28/21 20:00 03/28/21 20:32 Temperature 98.3 F Pulse Rate 84 84 82 Respiratory Rate 17 Blood Pressure 100/43 L Pulse Oximetry 96 03/28/21 22:00 03/28/21 23:05 03/29/21 00:00 Temperature 98.4 F Pulse Rate 84 78 68 Respiratory Rate 18 Blood Pressure 117/51 L Pulse Oximetry 100 03/29/21 02:00 03/29/21 04:00 03/29/21 06:00 Temperature 99.4 F Pulse Rate 71 79 77 Respiratory Rate 18 Blood Pressure 110/44 L Pulse Oximetry 96 Intake/Output Intake/Output: Intake & Output 03/26/21 03/27/21 03/28/21 03/29/21 23:59 23:59 23:59 22:59 Intake Total 860 840 300 Output Total 100 750 400 Balance 760 90 -100 Meds/Results Medications: Active Medications Generic Name Dose Route Start Last Admin Trade Name Freq PRN Reason Stop Dose Admin Aspirin 325 mg 03/28/21 08:0
[2021-03-29 08:45] LABS: Partial Thromboplastin Time 61.7 SECONDS (22.3-36.8)
[2021-03-29] MEDS: HEPARIN SODIUM 5,000 UNITS/ML VIAL 2000 UNITS IV PUSH (09:25)
[2021-03-29] MEDS: METOPROLOL TARTRATE 25 MG TABLET PO ×2 (09:27→20:13)
[2021-03-29] MEDS: LOSARTAN POTASSIUM 12.5 MG TABLET PO (09:27)
[2021-03-29] MEDS: ASPIRIN 81 MG ENTERIC TABLET PO (09:29)
[2021-03-29] MEDS: ROSUVASTATIN 10 MG TABLET 40 MG PO (09:30)
[2021-03-29] MEDS: ACETAMINOPHEN 325 MG TABLET 650 MG PO (11:34)
--- NOTE | 2021-03-29 16:10 | PM.IMPN ---
Progress Note: A&P Assessment and Plan (1) NSTEMI (non-ST elevated myocardial infarction): Code(s): I21.4 - Non-ST elevation (NSTEMI) myocardial infarction Status: Acute Assessment and Plan: With atypical symptoms presented with generalized weakness Cardiology has been consulted On heparin drip Planned to be treated medically Echo with mild LV dysfunction EF 35-40% global hypokinesis mild LVH severe LA 80 moderate MR [id number] TR small pericardial effusion. Troponin peak 57 Currently on aspirin and atorvastatin. Brilinta added On p.r.n. beta-yassine due to incidence of pauses Now scheduled (2) Acute kidney injury superimposed on chronic kidney disease: Code(s): N17.9 - Acute kidney failure, unspecified; N18.9 - Chronic kidney disease, unspecified Status: Acute Assessment and Plan: Patient's creatinine is 1.8 on admission. Baseline creatinine of 1.1 Continue to monitor slightly better today (3) CHF (congestive heart failure): Qualifiers: Heart failure chronicity: unspecified Heart failure type: unspecified Qualified Code(s): I50.9 - Heart failure, unspecified Code(s): I50.9 - Heart failure, unspecified Status: Acute Assessment and Plan: Echo with LV dysfunction. Cardiomegaly with mild pulmonary edema was noted on her chest x-ray. Diuresis per Cardiology (4) Atrial fibrillation: Qualifiers: Atrial fibrillation type: unspecified Qualified Code(s): I48.91 - Unspecified atrial fibrillation Code(s): I48.91 - Unspecified atrial fibrillation Status: Chronic Assessment and Plan: Rate controlled. The patient was given a dose of IV Cardizem. Which converted her back to sinus rhythm and remains in sinus rhythm. The patient is currently on heparin drip. She is intermittently going to atrial fibrillation as well. On metoprolol 25 mg every 12 hours (5) Dementia: Code(s): F03.90 - Unspecified dementia without behavioral disturbance Status: Chronic Assessment and Plan: The patient lives at home with her . She is currently not on any medication for dementia. However the stated that her short-term memory is declining. (6) Dyslipidemia: Code(s): E78.5 - Hyperlipidemia, unspecified Status: Chronic Assessment and Plan: Atorvastatin. (7) HTN (hypertension): Code(s): I10 - Essential (primary) hypertension Status: Chronic Assessment and Plan: P.r.n. hydralazine. Additional Plan DVT prophylaxis on heparin drip PT OT Subjective Date/time seen: 03/29/21 16:10 Interval history: HPI: this is a 75-year-old female patient who resides at home with her . She has a history of dementia. The patient was here earlier this morning but then signed out against medical advice. The brought her back to the emergency room for complaints of generalized weakness. The patient was complaining of severe acid reflux this morning. The is at the bedside answering questions. Reportedly the patient had a COVID vaccine and flu vaccine on Tuesday. The patient and her was supposed to go to [facility] this morning but she stated that she felt too weak to go. The patient is also complaining of shoulder pain and back pain. She is also complaining of nausea. She denies any fever chest pain. Patient's creatinine today is 1.8 and previously was 1.1 and 1.6. Initial troponin 0.280 and 3 hour troponin is 4.690. BNP [address]. Head CT was read as no acute intracranial abnormality. Age-related findings. Chest x-ray was read as cardiomegaly with likely mild pulmonary edema. Cardiology has been consulted. Cardiology has seen the patient in the emergency room and recommended that the [facility] group see the patient for possible cardiac catheterization. EKG was read as atrial fibrillation with rapid ventricular response. The patient has a previous history of atrial fibr
[2021-03-29] MEDS: TICAGRELOR 90 MG TABLET PO (20:14)
[2021-03-30] VITALS (21 sets, daily range): BP systolic 117–162; BP diastolic 65–84; PULSE 77–135; RESP 16–24; TEMP 36.3–37.4; O2SAT 97–99
--- NOTE | 2021-03-30 00:23 | ECG_ITS ---
Measurements Intervals [place] Rate: 140 P: GA: 0 QRS: -16 QRSD: 92 T: 103 QT: 299 QTc: 458 Interpretive Statements ATRIAL FLUTTER/TACHYCARDIA WITH RAPID VENTRICULAR RESPONSE LEFT VENTRICULAR HYPERTROPHY AND ST-T CHANGE ST-T WAVE ABNORMALITY IN ANTEROLAT/HIGH LAT LEADS- CONSIDER ISCHEMIA BASELINE WANDER- V4-V6 ABNORMAL ECG Electronically Signed On 03-30-2021 7:58:22 [employer]ISSIONED [employer] by Luis Duke D.O.
[2021-03-30] MEDS: AMIODARONE 150 MG/D5W 100 ML 150 MG/100 ML BAG 600 MG IV CONT (01:17)
[2021-03-30] MEDS: AMIODARONE 360 MG/D5W 200 ML 360 MG/200 ML BAG 33.33 MG IV CONT (01:18)
[2021-03-30 04:55] LABS: Hematocrit 36.9 % (37.0-47.0); Hemoglobin 11.8 g/dL (12.0-15.0); Mean Corpuscular Hemoglobin 31.4 pg (26-34); Mean Corpuscular Volume 98.1 fl (80-100); Mean Platelet Volume 10.8 fl (7.4-10.4); Platelet Count Result 253 k/mm3 (150-375); Red Blood Count 3.76 M/mm3 (4.2-5.4); Red Cell Distribution Width 14.7 % (11.5-14.5); White Blood Count 12.7 K/mm3 (4.5-10.0)
[2021-03-30 05:09] LABS: Alanine Aminotransferase 38 U/L (4-35); Alkaline Phosphatase 66 U/L (38-126); Anion Gap 12 mmol/L (8-16); Aspartate Amino Transferase 149 U/L (14-36); Bilirubin,Total 0.5 mg/dL (0.2-1.3); Blood Urea Nitrogen 40 mg/dL (7-17); Calcium 9.1 mg/dL (8.4-10.2); Carbon Dioxide 22 mmol/L (22-30); Chloride 97 mmol/L (98-107); Estimated CRCL calculation 17 ml/min; Estimated Glomerular Filt Rate 24; Glucose 248 mg/dL (65-110); Magnesium 2.6 mg/dL (1.6-2.3); Potassium 3.8 mmol/L (3.4-5.0); Sodium 131 mmol/L (137-145)
[2021-03-30] MEDS: AMIODARONE 360 MG/D5W 200 ML 360 MG/200 ML BAG 16.67 MG IV CONT ×2 (06:56→19:01)
--- NOTE | 2021-03-30 07:44 | PM.PNCARD ---
Progress Note: A&P Assessment and Plan (1) NSTEMI (non-ST elevated myocardial infarction): Code(s): I21.4 - Non-ST elevation (NSTEMI) myocardial infarction Status: Acute Assessment and Plan: She definitely had an ACS event, namely a NSTEMI. Her symptoms were atypical and she is clinically stable and no longer having chest pains. Discuss risks/benefits/alternative treatment to left heart cath and she and her were agreeable to procedure on 03/27/21. Started Heparin drip. On aspirin, Atorvastatin, Metoprolol. Notified [facility] [place] on 03/27/21 for left heart cath and was seen by Dr. Butler. Appreciate him seeing her from an interventional cardiology standpoint. Please refer to his consult note for further details as to why she is not taken to the computer lab para professional. Will treat her medically. Echo shows mild LVE, EF 35-40%, global hypokinesis, mild LVH, severe LAE, mod MR, mild-mod TR, small pericardial effusion. Continue heparin drip for 24 hours after troponin peaks. Troponin peaked at 57 on 03/28/21 at 2 pm. Heparin drip stopped at 2 pm today. Started Brilinta 90 mg every 12 hours and decrease aspirin 81 mg daily. Stop Brilinta as we will start Eliquis for atrial fibrillation. (2) HTN (hypertension): Code(s): I10 - Essential (primary) hypertension Status: Chronic Assessment and Plan: High. Increase Losartan 25 mg daily. (3) Dyslipidemia: Code(s): E78.5 - Hyperlipidemia, unspecified Status: Chronic Assessment and Plan: On Atorvastatin. (4) Atrial fibrillation: Qualifiers: Atrial fibrillation type: unspecified Qualified Code(s): I48.91 - Unspecified atrial fibrillation Code(s): I48.91 - Unspecified atrial fibrillation Status: Chronic Assessment and Plan: [id number] 4. Will need to be anticoagulated but has been on heparin drip for NSTEMI. Rate control was with Metoprolol tartate 5 mg IV prn. She has spontaneously converted back to sinus rhythm within a day of admission. PAF returned. On Amiodarone drip which cardioverted back to sinus rhythm. Start Eliquis 2.5 mg every 12 hours, continue aspirin, and stop Brilinta as she did not get a stent. Will continue Amiodarone drip for total of 24 hours which would be midnight tonight, then stop drip. Will start Amiodarone 200 mg PO every 12 hours starting tomorrow morning. Subjective Date/time seen: 03/30/21 07:44 Denies chest pain or sob. She went into atrial fib with RVR at midnight. Amiodarone started and restored sinus rhythm by 01:25. Exam Const: General: cooperative, healthy appearing and comfortable Resp: Auscultation: clear to auscultation bilaterally, no crackles, no rales, no rhonchi and no wheezes Cardio: Jugular venous distension: no JVD Rate: regular rate Rhythm: regular rhythm Heart sounds: no murmurs Peripheral pulses: dorsalis pedis present GI: GI Palp: No abdominal tenderness and Yes Soft to palpation Neuro: General: oriented to person, oriented to place and No oriented to time Extrem: Right lower extremity: no edema Left lower extremity: no edema Objective Data Vital Signs Vital Signs: Vital Signs - 24 hr 03/29/21 08:00 03/29/21 09:27 03/29/21 09:32 Temperature 96.8 F L Pulse Rate 74 121 H 78 Respiratory Rate 16 Blood Pressure 120/43 L Pulse Oximetry 99 03/29/21 10:00 03/29/21 12:15 03/29/21 12:52 Temperature 99.7 F H Pulse Rate 74 130 H 127 H Respiratory Rate 18 Blood Pressure 97/48 L Pulse Oximetry 96 03/29/21 13:25 03/29/21 14:00 03/29/21 16:00 Temperature Pulse Rate 74 72 69 Respiratory Rate Blood Pressure Pulse Oximetry 03/29/21 16:12 03/29/21 20:00 03/29/21 20:13 Temperature 97.6 F 97.6 F Pulse Rate 70 90 150 H Respiratory Rate 18 18 Blood Pressure 107/57 L 114/57 L Pulse Oximetry 95 96 03/29/21 22:00 03/29/21 23:43 03/30/21 00:00 Temperature 98 F Pulse Rate 151 H 120 H 131 H Respiratory Rate 20 [place]
[2021-03-30] MEDS: ASPIRIN 81 MG ENTERIC TABLET PO (08:22)
[2021-03-30] MEDS: ROSUVASTATIN 10 MG TABLET 40 MG PO (08:22)
[2021-03-30] MEDS: LOSARTAN POTASSIUM 25 MG TABLET PO (08:22)
[2021-03-30] MEDS: METOPROLOL TARTRATE 25 MG TABLET PO ×2 (08:22→20:11)
[2021-03-30] MEDS: APIXABAN 2.5 MG TABLET PO ×2 (08:22→20:11)
--- NOTE | 2021-03-30 15:16 | PM.IMPN ---
Progress Note: A&P Assessment and Plan (1) NSTEMI (non-ST elevated myocardial infarction): Code(s): I21.4 - Non-ST elevation (NSTEMI) myocardial infarction Status: Acute Assessment and Plan: With atypical symptoms presented with generalized weakness Cardiology has been consulted On heparin drip Planned to be treated medically Echo with mild LV dysfunction EF 35-40% global hypokinesis mild LVH severe LA 80 moderate MR [id number] TR small pericardial effusion. Troponin peak 57 Currently on aspirin and atorvastatin. Brilinta added On p.r.n. beta-yassine due to incidence of pauses Now scheduled (2) Acute kidney injury superimposed on chronic kidney disease: Code(s): N17.9 - Acute kidney failure, unspecified; N18.9 - Chronic kidney disease, unspecified Status: Acute Assessment and Plan: Patient's creatinine is 1.8 on admission. Baseline creatinine of 1.1 Continue to monitor slightly better today (3) CHF (congestive heart failure): Qualifiers: Heart failure chronicity: unspecified Heart failure type: unspecified Qualified Code(s): I50.9 - Heart failure, unspecified Code(s): I50.9 - Heart failure, unspecified Status: Acute Assessment and Plan: Echo with LV dysfunction. Cardiomegaly with mild pulmonary edema was noted on her chest x-ray. Diuresis per Cardiology (4) Atrial fibrillation: Qualifiers: Atrial fibrillation type: unspecified Qualified Code(s): I48.91 - Unspecified atrial fibrillation Code(s): I48.91 - Unspecified atrial fibrillation Status: Chronic Assessment and Plan: Rate controlled. The patient was given a dose of IV Cardizem. Which converted her back to sinus rhythm and remains in sinus rhythm. The patient is currently on heparin drip. She is intermittently going to atrial fibrillation as well. On metoprolol 25 mg every 12 hours Atrial fibrillation with rapid ventricular rate again on 03/30/2021 currently on amiodarone drip per Cardiology (5) Dementia: Code(s): F03.90 - Unspecified dementia without behavioral disturbance Status: Chronic Assessment and Plan: The patient lives at home with her . She is currently not on any medication for dementia. However the stated that her short-term memory is declining. (6) Dyslipidemia: Code(s): E78.5 - Hyperlipidemia, unspecified Status: Chronic Assessment and Plan: Atorvastatin. (7) HTN (hypertension): Code(s): I10 - Essential (primary) hypertension Status: Chronic Assessment and Plan: P.r.n. hydralazine. Additional Plan DVT prophylaxis on heparin drip PT OT Subjective Date/time seen: 03/30/21 15:16 Interval history: HPI: this is a 75-year-old female patient who resides at home with her . She has a history of dementia. The patient was here earlier this morning but then signed out against medical advice. The brought her back to the emergency room for complaints of generalized weakness. The patient was complaining of severe acid reflux this morning. The is at the bedside answering questions. Reportedly the patient had a COVID vaccine and flu vaccine on Tuesday. The patient and her was supposed to go to [facility] this morning but she stated that she felt too weak to go. The patient is also complaining of shoulder pain and back pain. She is also complaining of nausea. She denies any fever chest pain. Patient's creatinine today is 1.8 and previously was 1.1 and 1.6. Initial troponin 0.280 and 3 hour troponin is 4.690. BNP [address]. Head CT was read as no acute intracranial abnormality. Age-related findings. Chest x-ray was read as cardiomegaly with likely mild pulmonary edema. Cardiology has been consulted. Cardiology has seen the patient in the emergency room and recommended that the [facility] group see the patient for possible cardiac catheterization. EKG wa
[2021-03-30] MEDS: ACETAMINOPHEN 325 MG TABLET 650 MG PO (22:50)
[2021-03-31] VITALS (17 sets, daily range): BP systolic 93–135; BP diastolic 49–79; PULSE 75–135; RESP 18–20; TEMP 36.3–36.6; O2SAT 96–100
[2021-03-31 05:02] LABS: Hematocrit 34.9 % (37.0-47.0); Hemoglobin 11.3 g/dL (12.0-15.0); Mean Corpuscular HGB Conc 32.4 g/dl (32-36); Mean Corpuscular Volume 95.9 fl (80-100); Mean Platelet Volume 11.2 fl (7.4-10.4); Platelet Count Result 202 k/mm3 (150-375); Red Blood Count 3.64 M/mm3 (4.2-5.4); Red Cell Distribution Width 14.6 % (11.5-14.5); White Blood Count 9.8 K/mm3 (4.5-10.0)
[2021-03-31 05:18] LABS: Alanine Aminotransferase 36 U/L (4-35); Albumin Level 3.6 g/dL (3.5-5.1); Alkaline Phosphatase 61 U/L (38-126); Anion Gap 12 mmol/L (8-16); Aspartate Amino Transferase 152 U/L (14-36); Bilirubin,Total 0.5 mg/dL (0.2-1.3); Blood Urea Nitrogen 41 mg/dL (7-17); Calcium 8.6 mg/dL (8.4-10.2); Carbon Dioxide 22 mmol/L (22-30); Chloride 96 mmol/L (98-107); Estimated CRCL calculation 18 ml/min; Estimated Glomerular Filt Rate 27; Glucose 149 mg/dL (65-110); Magnesium 2.5 mg/dL (1.6-2.3); Potassium 3.8 mmol/L (3.4-5.0); Sodium 130 mmol/L (137-145)
--- NOTE | 2021-03-31 07:36 | PM.PNCARD ---
Progress Note: A&P Assessment and Plan (1) NSTEMI (non-ST elevated myocardial infarction): Code(s): I21.4 - Non-ST elevation (NSTEMI) myocardial infarction Status: Acute Assessment and Plan: She definitely had an ACS event, namely a NSTEMI. Her symptoms were atypical and she is clinically stable and no longer having chest pains. Discuss risks/benefits/alternative treatment to left heart cath and she and her were agreeable to procedure on 03/27/21. Started Heparin drip. On aspirin, Atorvastatin, Metoprolol. Notified [facility] [place] on 03/27/21 for left heart cath and was seen by Dr. Butler. Appreciate him seeing her from an interventional cardiology standpoint. Please refer to his consult note for further details as to why she is not taken to the clinical laboratory assistant. Will treat her medically. Echo shows mild LVE, EF 35-40%, global hypokinesis, mild LVH, severe LAE, mod MR, mild-mod TR, small pericardial effusion. Continue heparin drip for 24 hours after troponin peaks. Troponin peaked at 57 on 03/28/21 at 2 pm. Heparin drip stopped at 2 pm today. Started Brilinta 90 mg every 12 hours and decrease aspirin 81 mg daily. Stopped Brilinta, and started on Eliquis for atrial fibrillation. (2) HTN (hypertension): Code(s): I10 - Essential (primary) hypertension Status: Chronic Assessment and Plan: Stable. (3) Dyslipidemia: Code(s): E78.5 - Hyperlipidemia, unspecified Status: Chronic Assessment and Plan: On Rosuvastatin. (4) Atrial fibrillation: Qualifiers: Atrial fibrillation type: unspecified Qualified Code(s): I48.91 - Unspecified atrial fibrillation Code(s): I48.91 - Unspecified atrial fibrillation Status: Chronic Assessment and Plan: [id number] 4. Will need to be anticoagulated but has been on heparin drip for NSTEMI. Rate control was with Metoprolol tartate 5 mg IV prn. She has spontaneously converted back to sinus rhythm within a day of admission. PAF returned. On Amiodarone drip which cardioverted back to sinus rhythm. Start Eliquis 2.5 mg every 12 hours, continue aspirin, and stop Brilinta as she did not get a stent. Amiodarone drip went for total of 24 hours. Start Amiodarone 200 mg PO every 12 hours. Check EKG. (5) Systolic dysfunction: Code(s): I51.9 - Heart disease, unspecified Status: Acute Assessment and Plan: Moderate systolic dysfunction. Appears to be euvolemic. On Metoprolol and Losartan. Subjective Date/time seen: 03/31/21 07:36 Denies chest pain or sob today. Exam Const: General: cooperative, healthy appearing and comfortable Resp: Auscultation: clear to auscultation bilaterally, no crackles, no rales, no rhonchi and no wheezes Cardio: Jugular venous distension: no JVD Rate: regular rate Rhythm: regular rhythm Heart sounds: no murmurs Peripheral pulses: dorsalis pedis present GI: GI Palp: No abdominal tenderness and Yes Soft to palpation Neuro: General: oriented to person, oriented to place and No oriented to time Extrem: Right lower extremity: no edema Left lower extremity: no edema Objective Data Vital Signs Vital Signs: Vital Signs - 24 hr 03/30/21 07:37 03/30/21 08:00 03/30/21 08:22 Temperature 97.5 F L Pulse Rate 93 88 88 Respiratory Rate 16 Blood Pressure 144/81 H Pulse Oximetry 97 03/30/21 10:00 03/30/21 12:00 03/30/21 12:21 Temperature 99.3 F Pulse Rate 88 83 85 Respiratory Rate 24 H Blood Pressure 141/84 H Pulse Oximetry 99 03/30/21 14:00 03/30/21 16:00 03/30/21 16:51 Temperature 98.4 F Pulse Rate 81 77 79 Respiratory Rate Blood Pressure 130/70 Pulse Oximetry 97 03/30/21 18:00 03/30/21 20:00 03/30/21 20:11 Temperature 97.9 F Pulse Rate 82 82 83 Respiratory Rate 16 Blood Pressure 121/65 Pulse Oximetry 99 03/30/21 21:56 03/30/21 22:59 03/31/21 00:00 Temperature 97.4 F L Pulse Rate 84 85 80 Respiratory Rate 20 Blood Pre
--- NOTE | 2021-03-31 08:00 | ECG_ITS ---
Measurements Intervals [place] Rate: 86 P: -3 MS: 160 QRS: -21 QRSD: 85 T: 243 QT: 448 QTc: 536 Interpretive Statements SINUS RHYTHM DELAYED PRECORDIAL R/S TRANSITION ST-T WAVE ABNORMALITY IN ANTEROLAT/HIGH LAT LEADS- CONSIDER ISCHEMIA PROLONGED QT INTERVAL ABNORMAL ECG Electronically Signed On 03-31-2021 9:52:41 MYCOLOGY TEACHER by Luis Duke D.O.
[2021-03-31] MEDS: APIXABAN 2.5 MG TABLET PO ×2 (08:58→21:27)
[2021-03-31] MEDS: METOPROLOL TARTRATE 25 MG TABLET PO ×2 (08:58→21:27)
[2021-03-31] MEDS: AMIODARONE HCL 200 MG TABLET PO ×2 (08:58→21:55)
[2021-03-31] MEDS: ASPIRIN 81 MG ENTERIC TABLET PO (08:58)
[2021-03-31] MEDS: LOSARTAN POTASSIUM 25 MG TABLET PO (08:58)
[2021-03-31] MEDS: ROSUVASTATIN 10 MG TABLET 40 MG PO (08:58)
--- NOTE | 2021-03-31 12:29 | PM.IMPN ---
Progress Note: A&P Assessment and Plan (1) NSTEMI (non-ST elevated myocardial infarction): Code(s): I21.4 - Non-ST elevation (NSTEMI) myocardial infarction Status: Acute Assessment and Plan: With atypical symptoms presented with generalized weakness Cardiology has been consulted On heparin drip Planned to be treated medically Echo with mild LV dysfunction EF 35-40% global hypokinesis mild LVH severe LA 80 moderate MR [id number] TR small pericardial effusion. Troponin peak 57 Currently on aspirin and rosuvastatin and eliquis. Some pauses with beta blockers continue to watch on telemetry (2) Acute kidney injury superimposed on chronic kidney disease: Code(s): N17.9 - Acute kidney failure, unspecified; N18.9 - Chronic kidney disease, unspecified Status: Acute Assessment and Plan: Patient's creatinine is 1.8 on admission. creat is 1.8 now. (3) CHF (congestive heart failure): Qualifiers: Heart failure chronicity: unspecified Heart failure type: unspecified Qualified Code(s): I50.9 - Heart failure, unspecified Code(s): I50.9 - Heart failure, unspecified Status: Acute Assessment and Plan: Echo with LV dysfunction. (4) Atrial fibrillation: Qualifiers: Atrial fibrillation type: unspecified Qualified Code(s): I48.91 - Unspecified atrial fibrillation Code(s): I48.91 - Unspecified atrial fibrillation Status: Chronic Assessment and Plan: Pt was on heparin drip now on eliquis. Pt started on metoprolol 25 mg every 12 hours Atrial fibrillation with rapid ventricular rate put on drip on 03/30- amiodarone drip Cardiology rounding, drip stopped pt is on oral amiodarone Continiue medical management today, hopeful Dc tomorrow. (5) Dementia: Code(s): F03.90 - Unspecified dementia without behavioral disturbance Status: Chronic Assessment and Plan: The patient lives at home with her . She is currently not on any medication for dementia. (6) Dyslipidemia: Code(s): E78.5 - Hyperlipidemia, unspecified Status: Chronic Assessment and Plan: Rovastatin (7) HTN (hypertension): Code(s): I10 - Essential (primary) hypertension Status: Chronic Assessment and Plan: P.r.n. hydralazine. Subjective Date/time seen: 03/31/21 12:29 Interval history: 75-year-old female patient who resides at home with her . She has a history of dementia. The patient was here earlier this morning but then signed out against medical advice. The brought her back to the emergency room for complaints of generalized weakness. The patient was complaining of severe acid reflux this morning. The is at the bedside answering questions. Reportedly the patient had a COVID vaccine and flu vaccine on Tuesday. The patient and her was supposed to go to [facility] this morning but she stated that she felt too weak to go. The patient is also complaining of shoulder pain and back pain. She is also complaining of nausea. Initial troponin 0.280 and 3 hour troponin is 4.690. BNP [address]. Head CT was read as no acute intracranial abnormality. Age-related findings. Chest x-ray was read as cardiomegaly with likely mild pulmonary edema. Cardiology has been consulted. Cardiology has seen the patient in the emergency room and recommended that the [facility] group see the patient for possible cardiac catheterization. EKG was read as atrial fibrillation with rapid ventricular response. The patient has a previous history of atrial fibrillation. The patient was started on IV fluids, Protonix, Cardizem IV push x1, heparin drip, and Xopenex nebulizer treatment for wheezing. The patient was given calcium gluconate to reverse the effects of the beta-yassine that she took this morning. She was also given Phenergan IV for nausea. Patient went into atrial fibrillation with rapid ventricular rate overnight.
--- NOTE | 2021-03-31 15:13 | PCPTNOTE ---
Attempted to see patient for PT, patient declined. Patient was asleep prior to therapy entering room, woke patient up to ask if she would like to work with therapy, patient looked at therapist and went back to sleep, asked patient again if she wants to work with therapy and patient looked up and stated no and went back to sleep.
[2021-03-31] MEDS: ONDANSETRON INJ 4 MG/2 ML VIAL IV PUSH (16:43)
--- NOTE | 2021-03-31 19:41 | ECG_ITS ---
Measurements Intervals [place] Rate: 137 P: MA: 0 QRS: 251 QRSD: 91 T: 229 QT: 265 QTc: 401 Interpretive Statements ATRIAL FLUTTER/TACHYCARDIA WITH RAPID VENTRICULAR RESPONSE BORDERLINE R WAVE PROGRESSION, ANTERIOR LEADS ST-T WAVE ABNORMALITY IN DIFFUSE LEADS- CONSIDER ISCHEMIA BASELINE WANDER- I, II, III, AVR, AVL, AVF ABNORMAL ECG Electronically Signed On 04-01-2021 5:37:11 COMPUTER PROGRAMMER by Luis Duke D.O.
[2021-04-01] VITALS (19 sets, daily range): BP systolic 100–121; BP diastolic 47–86; PULSE 67–117; RESP 16–22; TEMP 36.2–37; O2SAT 96–100
[2021-04-01] MEDS: ONDANSETRON INJ 4 MG/2 ML VIAL IV PUSH ×2 (01:02→14:56)
[2021-04-01 05:19] LABS: Hematocrit 34.3 % (37.0-47.0); Hemoglobin 11.1 g/dL (12.0-15.0); Mean Corpuscular HGB Conc 32.4 g/dl (32-36); Mean Corpuscular Hemoglobin 31.4 pg (26-34); Mean Corpuscular Volume 96.9 fl (80-100); Mean Platelet Volume 11.2 fl (7.4-10.4); Platelet Count Result 210 k/mm3 (150-375); Red Blood Count 3.54 M/mm3 (4.2-5.4); Red Cell Distribution Width 14.6 % (11.5-14.5); White Blood Count 7.6 K/mm3 (4.5-10.0)
[2021-04-01 05:33] LABS: Alanine Aminotransferase 38 U/L (4-35); Albumin Level 3.3 g/dL (3.5-5.1); Alkaline Phosphatase 65 U/L (38-126); Anion Gap 6 mmol/L (8-16); Aspartate Amino Transferase 99 U/L (14-36); Bilirubin,Total 0.5 mg/dL (0.2-1.3); Blood Urea Nitrogen 46 mg/dL (7-17); Calcium 8.3 mg/dL (8.4-10.2); Carbon Dioxide 26 mmol/L (22-30); Chloride 97 mmol/L (98-107); Estimated CRCL calculation 17 ml/min; Estimated Glomerular Filt Rate 24; Glucose 144 mg/dL (65-110); Magnesium 2.4 mg/dL (1.6-2.3); Sodium 129 mmol/L (137-145)
--- NOTE | 2021-04-01 07:39 | PM.PNCARD ---
Progress Note: A&P Assessment and Plan (1) NSTEMI (non-ST elevated myocardial infarction): Code(s): I21.4 - Non-ST elevation (NSTEMI) myocardial infarction Status: Acute Assessment and Plan: She definitely had an ACS event, namely a NSTEMI. Her symptoms were atypical and she is clinically stable and no longer having chest pains. Discuss risks/benefits/alternative treatment to left heart cath and she and her were agreeable to procedure on 03/27/21. Started Heparin drip. On aspirin, Atorvastatin, Metoprolol. Notified [facility] [place] on 03/27/21 for left heart cath and was seen by Dr. Butler. Appreciate him seeing her from an interventional cardiology standpoint. Please refer to his consult note for further details as to why she is not taken to the manager labor delivery. Will treat her medically. Echo shows mild LVE, EF 35-40%, global hypokinesis, mild LVH, severe LAE, mod MR, mild-mod TR, small pericardial effusion. Continue heparin drip for 24 hours after troponin peaks. Troponin peaked at 57 on 03/28/21 at 2 pm. Heparin drip stopped at 2 pm today. Started Brilinta 90 mg every 12 hours and decrease aspirin 81 mg daily. Stopped Brilinta, and started on Eliquis for atrial fibrillation. (2) HTN (hypertension): Code(s): I10 - Essential (primary) hypertension Status: Chronic Assessment and Plan: Stable. (3) Dyslipidemia: Code(s): E78.5 - Hyperlipidemia, unspecified Status: Chronic Assessment and Plan: On Rosuvastatin. (4) Atrial fibrillation: Qualifiers: Atrial fibrillation type: unspecified Qualified Code(s): I48.91 - Unspecified atrial fibrillation Code(s): I48.91 - Unspecified atrial fibrillation Status: Chronic Assessment and Plan: Had both PAF and atrial flutter. [id number] 4. Will need to be anticoagulated but has been on heparin drip for NSTEMI. Rate control was with Metoprolol tartate 5 mg IV prn. She has spontaneously converted back to sinus rhythm within a day of admission. PAF returned. Was on Amiodarone drip which cardioverted back to sinus rhythm. On Eliquis 2.5 mg every 12 hours, continue aspirin, and stopped Brilinta as she did not get a stent. Amiodarone drip went for total of 24 hours. On Amiodarone 200 mg PO every 12 hours. Check EKG to assess QT interval. (5) Systolic dysfunction: Code(s): I51.9 - Heart disease, unspecified Status: Acute Assessment and Plan: Moderate systolic dysfunction. Appears to be euvolemic. On Metoprolol and Losartan. Subjective Date/time seen: 04/01/21 07:39 Denies chest pain or sob. She went into rapid atrial flutter last night, and a second dose of Amiodarone had to be given, which restored sinus rhythm. Exam Const: General: cooperative, healthy appearing and comfortable Resp: Auscultation: clear to auscultation bilaterally, no crackles, no rales, no rhonchi and no wheezes Cardio: Jugular venous distension: no JVD Rate: regular rate Rhythm: regular rhythm Heart sounds: no murmurs Peripheral pulses: dorsalis pedis present GI: GI Palp: No abdominal tenderness and Yes Soft to palpation Neuro: General: oriented to person, oriented to place and No oriented to time Extrem: Right lower extremity: no edema Left lower extremity: no edema Objective Data Vital Signs Vital Signs: Vital Signs - 24 hr 03/31/21 08:00 03/31/21 08:58 03/31/21 10:00 Temperature 97.9 F Pulse Rate 81 88 83 Respiratory Rate 18 Blood Pressure 135/79 Pulse Oximetry 100 03/31/21 12:00 03/31/21 14:00 03/31/21 16:00 Temperature 97.6 F 97.4 F L Pulse Rate 81 85 85 Respiratory Rate 20 18 Blood Pressure 132/75 113/54 L Pulse Oximetry 98 96 03/31/21 18:00 03/31/21 20:00 03/31/21 21:27 Temperature 97.5 F L Pulse Rate 80 134 H 135 H Respiratory Rate 18 Blood Pressure 93/55 L Pulse Oximetry 100 03/31/21 21:55 03/31/21 22:00 03/31/21 23:21 Temperature 97.6 F Pulse Rate 99 94 75
--- NOTE | 2021-04-01 08:00 | ECG_ITS ---
Measurements Intervals [place] Rate: 73 P: 39 LA: 192 QRS: 12 QRSD: 92 T: 234 QT: 482 QTc: 535 Interpretive Statements SINUS RHYTHM BORDERLINE R WAVE PROGRESSION, ANTERIOR LEADS ST-T WAVE ABNORMALITY IN DIFFUSE LEADS- CONSIDER ISCHEMIA BASELINE WANDER- AVR, AVL, AVF, V4-V6 ABNORMAL ECG Electronically Signed On 04-01-2021 13:51:04 PRODUCTION CELL LEADER by Luis Duke D.O.
[2021-04-01 08:03] LABS: Anion Gap 7 mmol/L (8-16); Blood Urea Nitrogen 45 mg/dL (7-17); Calcium 8.1 mg/dL (8.4-10.2); Carbon Dioxide 26 mmol/L (22-30); Chloride 97 mmol/L (98-107); Estimated CRCL calculation 16 ml/min; Estimated Glomerular Filt Rate 23; Glucose 137 mg/dL (65-110); Sodium 130 mmol/L (137-145)
[2021-04-01] MEDS: METOPROLOL TARTRATE 25 MG TABLET PO ×2 (08:20→21:09)
[2021-04-01] MEDS: LOSARTAN POTASSIUM 25 MG TABLET PO (08:21)
[2021-04-01] MEDS: APIXABAN 2.5 MG TABLET PO ×2 (08:23→21:10)
[2021-04-01] MEDS: AMIODARONE HCL 200 MG TABLET PO ×2 (08:23→21:10)
[2021-04-01] MEDS: ASPIRIN 81 MG ENTERIC TABLET PO (08:24)
[2021-04-01] MEDS: ROSUVASTATIN 10 MG TABLET 40 MG PO (08:24)
--- NOTE | 2021-04-01 11:38 | PCPTNOTE ---
Attempted to see patient for PT, however patient was working with OT and then needed to get EKG. Will try back at later time.
[2021-04-01] MEDS: ACETAMINOPHEN 325 MG TABLET 650 MG PO ×2 (13:40→21:16)
--- NOTE | 2021-04-01 14:01 | PM.IMPN ---
Progress Note: A&P Assessment and Plan (1) NSTEMI (non-ST elevated myocardial infarction): Code(s): I21.4 - Non-ST elevation (NSTEMI) myocardial infarction Status: Acute Assessment and Plan: With atypical symptoms presented with generalized weakness Cardiology has been consulted SP heparin drip - medically managed for NSTEMNI Echo with mild LV dysfunction EF 35-40% global hypokinesis mild LVH severe LA 80 moderate MR [id number] TR small pericardial effusion. Troponin peak 57 Currently on aspirin and rosuvastatin and eliquis. PT/ OT ordered for weakness post LA (2) Acute kidney injury superimposed on chronic kidney disease: Code(s): N17.9 - Acute kidney failure, unspecified; N18.9 - Chronic kidney disease, unspecified Status: Acute Assessment and Plan: Patient's creatinine is 1.8 on admission. creat is 2.1 (3) CHF (congestive heart failure): Qualifiers: Heart failure chronicity: unspecified Heart failure type: unspecified Qualified Code(s): I50.9 - Heart failure, unspecified Code(s): I50.9 - Heart failure, unspecified Status: Acute Assessment and Plan: Echo with LV dysfunction. (4) Atrial fibrillation: Qualifiers: Atrial fibrillation type: unspecified Qualified Code(s): I48.91 - Unspecified atrial fibrillation Code(s): I48.91 - Unspecified atrial fibrillation Status: Chronic Assessment and Plan: Pt was on heparin drip now on eliquis. Pt started on metoprolol 25 mg every 12 hours Cardiology rounding, amiodaone drip stopped pt is on oral amiodarone Continue medical management with oral amiodarone, metoprolol and eliquis today, hopeful DC in 1-2 days time Pt still in AF rate ranges between 80-120 (5) Dementia: Code(s): F03.90 - Unspecified dementia without behavioral disturbance Status: Chronic Assessment and Plan: The patient lives at home with her . She is currently not on any medication for dementia. (6) Dyslipidemia: Code(s): E78.5 - Hyperlipidemia, unspecified Status: Chronic Assessment and Plan: Rovastatin (7) HTN (hypertension): Code(s): I10 - Essential (primary) hypertension Status: Chronic Assessment and Plan: P.r.n. hydralazine. Subjective Date/time seen: 04/01/21 14:01 Interval history: ON admission - 75-year-old female patient who resides at home with her . She has a history of dementia. The patient was here earlier this morning but then signed out against medical advice. The brought her back to the emergency room for complaints of generalized weakness. The patient was complaining of severe acid reflux this morning. She is also complaining of nausea. Initial troponin 0.280 and 3 hour troponin is 4.690. BNP [address]. Head CT was read as no acute intracranial abnormality. Age-related findings. Chest x-ray was read as cardiomegaly with likely mild pulmonary edema. Cardiology has been consulted. Cardiology has seen the patient in the emergency room and recommended that the [facility] group see the patient for possible cardiac catheterization. EKG was read as atrial fibrillation with rapid ventricular response. The patient has a previous history of atrial fibrillation. The patient was started on IV fluids, Protonix, Cardizem IV push x1, heparin drip, and Xopenex nebulizer treatment for wheezing. The patient was given calcium gluconate to reverse the effects of the beta-yassine that she took this morning. She was also given Phenergan IV for nausea. ON 03/28 Patient went into atrial fibrillation with rapid ventricular rate overnight. She has been placed on amiodarone drip. This morning she has already converted to normal sinus rhythm. She denies any chest pain or shortness of breath. ON 03/31 Today pt denies any chest pain or SOB, pt is back to NSR on telemetry. Cardiology unable to do heart catheterization due to d
--- NOTE | 2021-04-01 15:00 | PCPTNOTE ---
Attempted to see patient for PT, however patient refused due to not feeling well.
--- NOTE | 2021-04-01 16:09 | PC.NURSE ---
On 04/01/21, the student, Michael [facility], provided care and completed [facility] on this patient. I have reviewed the student's documentation and agree with the findings.
[2021-04-02] VITALS (9 sets, daily range): BP systolic 115–125; BP diastolic 58–60; PULSE 60–79; RESP 16; TEMP 36.4–36.6; O2SAT 96–98
[2021-04-02] MEDS: ONDANSETRON INJ 4 MG/2 ML VIAL IV PUSH (00:52)
--- NOTE | 2021-04-02 06:00 | ECG_ITS ---
Measurements Intervals [place] Rate: 74 P: 47 MO: 190 QRS: 107 QRSD: 89 T: 250 QT: 391 QTc: 435 Interpretive Statements SINUS RHYTHM MARKED RIGHT AXIS DEVIATION BORDERLINE R WAVE PROGRESSION, ANTERIOR LEADS ST-T WAVE ABNORMALITY IN INF/LAT LEADS- CONSIDER ISCHEMIA BASELINE ARTIFACT- I, II ABNORMAL ECG Electronically Signed On 04-02-2021 9:25:49 OUTPATIENT CODING SPECIALIST by Luis Duke D.O.
--- NOTE | 2021-04-02 06:47 | PM.PNCARD ---
Progress Note: A&P Assessment and Plan (1) NSTEMI (non-ST elevated myocardial infarction): Code(s): I21.4 - Non-ST elevation (NSTEMI) myocardial infarction Status: Acute Assessment and Plan: She definitely had an ACS event, namely a NSTEMI. Her symptoms were atypical and she is clinically stable and no longer having chest pains. Discuss risks/benefits/alternative treatment to left heart cath and she and her were agreeable to procedure on 03/27/21. Started Heparin drip. On aspirin, Atorvastatin, Metoprolol. [place] [facility] [place] left heart cath and was seen by Dr. Butler. Appreciate him seeing her from an interventional cardiology standpoint. Please refer to his consult note for further details as to why she is not taken to the shop laborer. Will treat her medically. Echo shows mild LVE, EF 35-40%, global hypokinesis, mild LVH, severe LAE, mod MR, mild-mod TR, small pericardial effusion. Continue heparin drip for 24 hours after troponin peaks. Troponin peaked at 57 on 03/28/21 at 2 pm. Heparin drip stopped at 2 pm today. Started Brilinta 90 mg every 12 hours and decrease aspirin 81 mg daily. Stopped Brilinta, and started on Eliquis for atrial fibrillation. May d/c home from cardiology standpoint and to f/u with me in 1 week. (2) HTN (hypertension): Code(s): I10 - Essential (primary) hypertension Status: Chronic Assessment and Plan: Stable. (3) Dyslipidemia: Code(s): E78.5 - Hyperlipidemia, unspecified Status: Chronic Assessment and Plan: On Rosuvastatin. (4) Atrial fibrillation: Qualifiers: Atrial fibrillation type: unspecified Qualified Code(s): I48.91 - Unspecified atrial fibrillation Code(s): I48.91 - Unspecified atrial fibrillation Status: Chronic Assessment and Plan: Had both PAF and atrial flutter. [id number] 4. Will need to be anticoagulated but has been on heparin drip for NSTEMI. Rate control was with Metoprolol tartate 5 mg IV prn. She has spontaneously converted back to sinus rhythm within a day of admission. PAF returned. Was on Amiodarone drip which cardioverted back to sinus rhythm. On Eliquis 2.5 mg every 12 hours, continue aspirin, and stopped Brilinta as she did not get a stent. Amiodarone drip went for total of 24 hours. On Amiodarone 200 mg PO every 12 hours. (5) Systolic dysfunction: Code(s): I51.9 - Heart disease, unspecified Status: Acute Assessment and Plan: Moderate systolic dysfunction. Appears to be euvolemic. On Metoprolol and Losartan. Subjective Date/time seen: 04/02/21 06:47 Denies chest pain or sob. Exam Const: General: cooperative, healthy appearing and comfortable Resp: Auscultation: clear to auscultation bilaterally, no crackles, no rales, no rhonchi and no wheezes Cardio: Jugular venous distension: no JVD Rate: regular rate Rhythm: regular rhythm Heart sounds: no murmurs Peripheral pulses: dorsalis pedis present GI: GI Palp: No abdominal tenderness and Yes Soft to palpation Neuro: General: oriented to person, oriented to place and No oriented to time Extrem: Right lower extremity: no edema Left lower extremity: no edema Objective Data Vital Signs Vital Signs: Vital Signs - 24 hr 04/01/21 07:43 04/01/21 08:00 04/01/21 08:20 Temperature 98.6 F Pulse Rate 111 H 117 H 112 H Respiratory Rate 16 Blood Pressure 100/65 Pulse Oximetry 96 04/01/21 08:23 04/01/21 09:52 04/01/21 12:00 Temperature 97.4 F L Pulse Rate 112 H 71 67 Respiratory Rate 20 Blood Pressure 100/47 L Pulse Oximetry 100 04/01/21 14:00 04/01/21 16:00 04/01/21 18:00 Temperature 97.2 F L Pulse Rate 73 73 75 Respiratory Rate 16 Blood Pressure 103/54 L Pulse Oximetry 98 04/01/21 19:48 04/01/21 20:00 04/01/21 21:09 Temperature 97.4 F L Pulse Rate 75 74 74 Respiratory Rate 18 16 Blood Pressure 112/72 Pulse Oximetry 96 98 04/01/21 21:1
[2021-04-02] MEDS: AMIODARONE HCL 200 MG TABLET PO (08:35)
[2021-04-02] MEDS: LOSARTAN POTASSIUM 25 MG TABLET PO (08:36)
[2021-04-02] MEDS: ASPIRIN 81 MG ENTERIC TABLET PO (08:36)
[2021-04-02] MEDS: ROSUVASTATIN 10 MG TABLET 40 MG PO (08:36)
[2021-04-02] MEDS: METOPROLOL TARTRATE 25 MG TABLET PO (08:36)
[2021-04-02] MEDS: APIXABAN 2.5 MG TABLET PO (08:36)
--- NOTE | 2021-04-02 13:10 | PC.NURSE ---
On 04/02/21, the student, [Juan Feliciano], provided care and completed [facility] documentation on this patient. I have reviewed the student's documentation and agree with the findings.
--- NOTE | 2021-04-02 13:37 | PM.DS ---
DS: Admitting Diagnosis Discharge Date 04/02/2021 Admitting Diagnosis weakness DS: Discharge Diagnosis Discharge Diagnosis (1) NSTEMI (non-ST elevated myocardial infarction): Code(s): I21.4 - Non-ST elevation (NSTEMI) myocardial infarction Status: Acute Assessment and Plan: With atypical symptoms presented with generalized weakness Cardiology has been consulted SP heparin drip - medically managed for NSTEMNI Echo with mild LV dysfunction EF 35-40% global hypokinesis mild LVH severe LA 80 moderate MR [id number] TR small pericardial effusion. Troponin peak 57 Currently on aspirin and rosuvastatin and eliquis. PT/ OT ordered for weakness post [place] (2) Acute kidney injury superimposed on chronic kidney disease: Code(s): N17.9 - Acute kidney failure, unspecified; N18.9 - Chronic kidney disease, unspecified Status: Acute Assessment and Plan: Patient's creatinine is 1.8 on admission. creat is 2.1 (3) CHF (congestive heart failure): Qualifiers: Heart failure chronicity: unspecified Heart failure type: unspecified Qualified Code(s): I50.9 - Heart failure, unspecified Code(s): I50.9 - Heart failure, unspecified Status: Acute Assessment and Plan: Echo with LV dysfunction. (4) Atrial fibrillation: Qualifiers: Atrial fibrillation type: unspecified Qualified Code(s): I48.91 - Unspecified atrial fibrillation Code(s): I48.91 - Unspecified atrial fibrillation Status: Chronic Assessment and Plan: Pt was on heparin drip now on eliquis. Pt started on metoprolol 25 mg every 12 hours Cardiology rounding, amiodaone drip stopped pt is on oral amiodarone Continue medical management with oral amiodarone, metoprolol and eliquis today, hopeful DC in 1-2 days time Pt still in AF rate ranges between 80-120 (5) Dementia: Code(s): F03.90 - Unspecified dementia without behavioral disturbance Status: Chronic Assessment and Plan: The patient lives at home with her . She is currently not on any medication for dementia. (6) Dyslipidemia: Code(s): E78.5 - Hyperlipidemia, unspecified Status: Chronic Assessment and Plan: Rovastatin (7) HTN (hypertension): Code(s): I10 - Essential (primary) hypertension Status: Chronic Assessment and Plan: P.r.n. hydralazine. DS: Summary Hospital Course Reason for hospitalization: this is a 75-year-old female patient who resides at home with her . She has a history of dementia. The patient was here earlier this morning but then signed out against medical advice. The brought her back to the emergency room for complaints of generalized weakness. The patient was complaining of severe acid reflux this morning. The is at the bedside answering questions. Reportedly the patient had a COVID vaccine and flu vaccine on Tuesday. The patient and her was supposed to go to [facility] this morning but she stated that she felt too weak to go. The patient is also complaining of shoulder pain and back pain. She is also complaining of nausea. She denies any fever chest pain. Patient's creatinine today is 1.8 and previously was 1.1 and 1.6. Initial troponin 0.280 and 3 hour troponin is 4.690. BNP [address]. Head CT was read as no acute intracranial abnormality. Age-related findings. Chest x-ray was read as cardiomegaly with likely mild pulmonary edema. Cardiology has been consulted. Cardiology has seen the patient in the emergency room and recommended that the [facility] see the patient for possible cardiac catheterization. EKG was read as atrial fibrillation with rapid ventricular response. The patient has a previous history of atrial fibrillation. The patient was started on IV fluids, Protonix, Cardizem IV push x1, heparin drip, and Xopenex nebulizer treatment for wheezing. The patient was given calcium gluconate to
== END 2021-04-02 14:18 | disposition home health service (06) | DRG 280 ==
LOC: ANHED 13:25 → ANHICU 13:44 → ANHIMU 03-30 11:58 → ANHICU 04-06 14:02 → ANHIMU 04-06 14:02
PROVIDERS: Internal Medicine; Internal Medicine Cardiovascular Disease; Physician Assistant; Admitting Provider Hospitalist; Emergency Provider Emergency Medicine; PCP Internal Medicine; Visit Provider Family Medicine
DX: I21.4 Non-ST elevation (NSTEMI) myocardial infarction (principal); I50.23 Acute on chronic systolic (congestive) heart failure; N17.9 Acute kidney failure, unspecified; I13.0 Hypertensive heart and chronic kidney disease with heart failure and stage 1 through stage 4 chronic kidney disease, or unspecified chronic kidney disease; I48.20 Chronic atrial fibrillation, unspecified; N18.4 Chronic kidney disease, stage 4 (severe); I48.91 Unspecified atrial fibrillation; F03.90 Unspecified dementia, unspecified severity, without behavioral disturbance, psychotic disturbance, mood disturbance, and anxiety; E78.5 Hyperlipidemia, unspecified; M19.90 Unspecified osteoarthritis, unspecified site; M41.9 Scoliosis, unspecified; Z98.42 Cataract extraction status, left eye; Z98.41 Cataract extraction status, right eye
CPT/HCPCS: 36415; 51701; 70450; 71046; 80048; 80053; 81001; 82948; 83690; 83735; 83880; 84484; 85025; 85027; 85610; 85730; 93005; 93306; 96365; 96366; 96375; 97116; 97163; 97165; 97530; 97535; 99285; A9270; C9113; G0378; J0282; J0610; J1644; J2405; J2550; J7040

== ENCOUNTER 2021-04-03 05:34 | Inpatient (IN) | payer MEDICARE, SELFPAY ==
[2021-04-03] VITALS (49 sets, daily range): BP systolic 95–143; BP diastolic 55–112; PULSE 76–128; RESP 11–26; TEMP 36.3–36.5; O2SAT 84–100; BMI 24.5
--- NOTE | ~2021-04-03 | XR_ITS ---
XR chest 1V portable 04/03/2021 06:27 Indication: Weakness. History of A. fib. Procedure: AP portable chest Comparison: 03/27/2021 Findings: Cardiomegaly. Small pleural effusions. Mild interstitial edema. No pneumothorax. No acute o sseous abnormality. Impression: 1: Cardiomegaly with mild interstitial edema. 2: Small pleural effusions. Reviewed, dictated and finalized at location A. LOUNGE ATTENDANT Impression: 1: Cardiomegaly with mild interstitial edema. 2: Small pleural effusions.
--- NOTE | 2021-04-03 05:52 | ECG_ITS ---
Measurements Intervals Sieper Rate: 105 P: NH: 0 QRS: -69 QRSD: 83 T: 156 QT: 343 QTc: 455 Interpretive Statements ATRIAL FIBRILLATION WITH RAPID VENTRICULAR RESPONSE LEFT AXIS DEVIATION BORDERLINE R WAVE PROGRESSION, ANTERIOR LEADS ST-T WAVE ABNORMALITY IN HIGH LATERAL LEADS- CONSIDER ISCHEMIA BASELINE ARTIFACT- I, II, III, AVF, V6 ABNORMAL ECG Electronically Signed On 04-03-2021 8:54:09 SUSPENDER CUTTER by Luis Duke D.O.
--- NOTE | 2021-04-03 05:59 | ED.GENADULT ---
HPI - General Adult General Chief complaint: Weakness Stated complaint: weakness, vomiting after eating Time Seen by Provider: 04/03/21 05:40 History of Present Illness HPI narrative: Patient is a 75-year-old female who presents the emergency department with chief complaint of generalized weakness. Patient was just in the hospital after having a non-STEMI atrial fibrillation and generalized weakness. The patient was discharged yesterday was discharged home and the states that once he got her home she started getting progressively weaker to the point that she was not able to ambulate around and laid on the floor. The patient laid on the floor for approximately 6 hours and he made her a bed on the floor attempting to allow her to rest and then get up patient would not get up and ultimately the patient decided to leave call EMS this morning. Patient reports no trauma denies loss of consciousness reports that she just feels generally exhausted. The patient's reports that patient have placed her in rehab upon discharge. Patient denies vomiting denies fever denies abdominal pain. Related Data Home Medications Medication Instructions Recorded Confirmed metoprolol succinate 100 mg PO DAILY 05/31/20 03/27/21 calcitriol 0.25 mcg PO DAILY 03/27/21 03/27/21 ergocalciferol (vitamin D2) 50,000 unit PO WEEKLY 03/27/21 03/27/21 losartan 25 mg PO DAILY 03/27/21 03/27/21 oxybutynin chloride 10 mg PO DAILY 03/27/21 03/27/21 pioglitazone 15 mg PO DAILY 03/27/21 03/27/21 rosuvastatin 40 mg PO DAILY 03/27/21 03/27/21 Allergies Allergy/AdvReac Type Severity Reaction Status Date / Time No Known Allergies Allergy Verified 04/03/21 05:44 Review of Systems Review of Systems: A 10 system review of systems was completed on the patient and is negative except for what is stated in the HPI. Nursing and ancillary documentation was reviewed. [facility] Past Medical History Medical History Arthritis Atrial fibrillation Bilateral cataracts Chronic back pain Dementia Dyslipidemia Hip fracture, right HTN (hypertension) Sciatica Scoliosis Surgical History Surgical History History of cataract extraction with lens replacement Bilateral History of open reduction and internal fixation (ORIF) procedure Right hip Family History Family History Unknown Family history unknown Sibling Accidental Involved in an explosion Social History Social History Social History: The patient lives at home with her who is the durable power divorce attorney for healthcare. 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 The patient quit smoking 50 years ago. She has 1 adopted child. No alcohol marijuana illicit drugs. Code status full code Smoking status: Former smoker Alcohol intake: never Substance use: never Gender identity (if verbalized by the patient): Female Spiritual care concerns: No Exam Narrative: GENERAL: Well-appearing, well-nourished, and in no acute distress. HEAD: Normocephalic, atraumatic. EYES: PERRLA and EOMI. ENT: Nares clear, no rhinorrhea or epistaxis. Mucous membranes moist. NECK: Supple. CHEST: Clear to auscultation. No respiratory distress. HEART: Regular rate and rhythm. No murmur heard. Normal peripheral pulses. ABDOMEN: Soft, nontender, nondistended, normal active bowel sounds. EXTREMITIES: Normal range of motion. No edema. SKIN: Warm, dry, no rash. NEURO: No focal deficits. Alert and oriented x3. PSYCH: Normal mood and affect. Course Vital Signs Vital signs: Vital Signs Temperature 36.5 C 04/03/21 05:34 Pulse Rate 106 H 04/03/21 05:34 Respiratory Rate 20 04/03/21 05:34 Blood Pressure 116/92 H 04/03/21 05:34 Temperature 36.5 C
[2021-04-03] MEDS: SODIUM CHLORIDE 0.9% IV 1,000 ML 200 ML IV CONT (06:26)
[2021-04-03 06:31] LABS: Basophils Percent Auto 0.5 % (0.2-1.2); Eosinophils Absolute Auto 0.1 K/mm3 (0-0.3); Hematocrit 34.3 % (37.0-47.0); Hemoglobin 11.3 g/dL (12.0-15.0); Immature Granulocyte Absolute 0.03 K/mm3 (0.00-0.031); Immature Granulocyte Percent A 0.5 % (0-0.5); Lymphocytes Absolute Auto 1.28 K/mm3 (0.9-3.2); Lymphocytes Percent Auto 21.4 % (18.3-44.2); Mean Corpuscular HGB Conc 32.9 g/dl (32-36); Mean Corpuscular Hemoglobin 31.8 pg (26-34); Mean Corpuscular Volume 96.6 fl (80-100); Monocytes Absolute Auto 0.7 K/mm3 (0.1-0.6); Monocytes Percent Auto 11.5 % (2.6-8.5); Neutrophils Absolute Auto 3.8 K/mm3 (1.3-6.7); Neutrophils Percent Auto 64.1 % (45.5-73.1); Platelet Count Result 250 k/mm3 (150-375); Red Blood Count 3.55 M/mm3 (4.2-5.4); Red Cell Distribution Width 14.5 % (11.5-14.5)
[2021-04-03 06:42] LABS: Lactic Acid Reflex 1.7 mmol/L (0.7-2.1); Magnesium 2.4 mg/dL (1.6-2.3)
[2021-04-03 06:43] LABS: Alanine Aminotransferase 45 U/L (4-35); Albumin Level 3.7 g/dL (3.5-5.1); Alkaline Phosphatase 71 U/L (38-126); Anion Gap 11 mmol/L (8-16); Aspartate Amino Transferase 87 U/L (14-36); Bilirubin,Total 0.5 mg/dL (0.2-1.3); Blood Urea Nitrogen 48 mg/dL (7-17); Calcium 8.9 mg/dL (8.4-10.2); Carbon Dioxide 26 mmol/L (22-30); Chloride 99 mmol/L (98-107); Creatine Kinase 855 U/L (30-135); Estimated CRCL calculation 14 ml/min; Estimated Glomerular Filt Rate 22; Glucose 130 mg/dL (65-110); Potassium 4.2 mmol/L (3.4-5.0); Sodium 136 mmol/L (137-145)
--- NOTE | 2021-04-03 06:46 | PC.NURSE ---
Bladder scan result 335 ml urine
[2021-04-03 07:09] LABS: NT Pro B Type Natriuretic Pept > 35000 pg/mL (5-100)
[2021-04-03 07:14] LABS: Add Urine Microscopic? YES; Appearance Urine Cloudy (Clear); Bacteria Urine Trace /hpf; Bilirubin Urine Negative (Negative); Blood Urine 2+ (Negative); Budding Yeast Urine Present /hpf; Color Urine Yellow (Yellow); Glucose Urine UA Negative (Negative); Ketones Urine Negative (Negative); Leukocyte Esterase Ur 1+ LEU/UL (Negative); Mucus Urine Rare /lpf; Nitrate Urine Negative (Negative); Protein Urine 2+ mg/dL (Negative); Specific Grav Ur 1.016 (1.001-1.035); Squamous Epithelial Cell Urine Rare /hpf (Few); Urobilinogen Urine Negative mg/dL (<2.0); WBC Urine 16-20 /hpf
[2021-04-03 07:41] LABS: INR 1.2; Partial Thromboplastin Time 29.9 SECONDS (22.3-36.8); Prothrombin Time 14.9 Seconds (11.1-14.7)
--- NOTE | 2021-04-03 09:30 | PCCCNOTE ---
Addendum entered by Charito Salas RN 04/03/21 10:11: Spoke with Yoselin from [facility], requests that med list be faxed over. Faxed to [facility] as requested. Original Note: Called to ER per request of for placement, met at bedside with patient and . Patient is asleep reports that she needs fpc placement, Agreeable to [facility] as they were agreeable for admission but patient declined and dc'd home with [facility]. Re-faxed clinical to [facility], called to [facility] and they have beds available and she will start insurance auth with [facility]. Yoselin called at 0930 she states that they can accept and will submit for auth karyn. Asked about medications but advised that patient is only on IV NS at this time.
--- NOTE | 2021-04-03 09:35 | PC.NURSE ---
Dr. Salgado states to d/c 200ml/hr NS to 125ml/hr to go upstairs with
[2021-04-03] MEDS: SODIUM CHLORIDE 0.9% IV 1,000 ML 125 ML IV CONT (09:37)
--- NOTE | 2021-04-03 10:50 | PC.NURSE ---
Pt and updated with status
--- NOTE | 2021-04-03 10:59 | PC.NURSE ---
Report given to Ashanti REID no further questions or concerns
--- NOTE | 2021-04-03 11:45 | PC.NURSE ---
This patient, Corine Mckeon, was admitted to 3 [facility] Surg Room 325-01. Patient/family oriented to hospital policies and general routines including ID bracelet, bed and alarms, visiting hours, pain management, procedures, bathroom and other care routines, personal items, smoking policy, room service/diet, and visiting hours. Information on how to activate the Rapid Response Team has been discussed. Patient/Family are encouraged to report perceived risks to care and to ask questions if they do not understand what they are told or what they should do.
[2021-04-04] VITALS (15 sets, daily range): BP systolic 112–136; BP diastolic 61–72; PULSE 73–130; RESP 14–18; TEMP 36.1–36.7; O2SAT 90–100
[2021-04-04 00:38] LABS: Alanine Aminotransferase 38 U/L (4-35); Albumin Level 3.2 g/dL (3.5-5.1); Alkaline Phosphatase 74 U/L (38-126); Anion Gap 7 mmol/L (8-16); Aspartate Amino Transferase 67 U/L (14-36); Bilirubin,Total 0.4 mg/dL (0.2-1.3); Blood Urea Nitrogen 44 mg/dL (7-17); Calcium 8.4 mg/dL (8.4-10.2); Carbon Dioxide 24 mmol/L (22-30); Chloride 103 mmol/L (98-107); Creatine Kinase 642 U/L (30-135); Estimated CRCL calculation 14 ml/min; Estimated Glomerular Filt Rate 22; Glucose 134 mg/dL (65-110); Potassium 3.6 mmol/L (3.4-5.0); Sodium 134 mmol/L (137-145)
[2021-04-04 01:05] LABS: Hemoglobin A1C 6.2 % (<5.7)
[2021-04-04 06:50] LABS: Alanine Aminotransferase 46 U/L (4-35); Albumin Level 3.8 g/dL (3.5-5.1); Alkaline Phosphatase 82 U/L (38-126); Aspartate Amino Transferase 74 U/L (14-36); Bilirubin,Total 0.5 mg/dL (0.2-1.3); Magnesium 2.5 mg/dL (1.6-2.3)
[2021-04-04 06:51] LABS: Anion Gap 11 mmol/L (8-16); Blood Urea Nitrogen 41 mg/dL (7-17); Calcium 8.6 mg/dL (8.4-10.2); Carbon Dioxide 21 mmol/L (22-30); Chloride 103 mmol/L (98-107); Estimated CRCL calculation 15 ml/min; Estimated Glomerular Filt Rate 23; Glucose 125 mg/dL (65-110); Sodium 135 mmol/L (137-145)
--- NOTE | 2021-04-04 07:54 | PM.IMHP ---
H&P: HPI History of Present Illness Date/Time: 04/04/21 07:54 patient is 75-year-old female initially admitted with generalized weakness nurse found to have a significantly elevated tropes upon arrival her tropes were 0.280 and climbed 57 seen by cardiology due to patient dementia concern the patient may not remains is calm and still during catheterization and elevated Scr the procedure was not done, I saw the patient 04/02/2021 at that time patient was quite weak and would not sit up in the bed and group home was recommended however patient refused and was discharged with home health with her however patient was brought back to the hospital again as patient was not able to take care of her, patient states she is too weak to move. patient has no other complaint see denies any chest pain shortness of breath palpitation. clinically patient remains stable. patient admitted inpatient status Chief Complaint: generalized weakness Review of Systems Review of Systems: All systems reviewed & are unremarkable except as noted in HPI and below PMFSH Past Medical History Medical History Arthritis Atrial fibrillation Bilateral cataracts Chronic back pain Dementia Dyslipidemia Hip fracture, right HTN (hypertension) Sciatica Scoliosis Surgical History Surgical History History of cataract extraction with lens replacement Bilateral History of open reduction and internal fixation (ORIF) procedure Right hip Family History Family History Unknown Family history unknown Sibling Accidental Involved in an explosion Social History Social History Social History: The patient lives at home with her who is the durable power family law attorney for healthcare. 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 The patient quit smoking 50 years ago. She has 1 adopted child. No alcohol marijuana illicit drugs. Code status full code Smoking status: Former smoker Alcohol intake: unknown Substance use: never Substance use type: does not use Gender identity (if verbalized by the patient): Female Spiritual care concerns: No Meds Home Medications and Allergies Home Medications Medication Instructions Recorded Confirmed Type calcitriol 0.25 mcg PO DAILY 03/27/21 04/03/21 History ergocalciferol (vitamin D2) 50,000 unit PO WEEKLY 03/27/21 04/03/21 History losartan 25 mg PO DAILY 03/27/21 04/03/21 History oxybutynin chloride 10 mg PO DAILY 03/27/21 04/03/21 History pioglitazone 15 mg PO DAILY 03/27/21 04/03/21 History rosuvastatin 40 mg PO DAILY 03/27/21 04/03/21 History amiodarone [Pacerone] 200 mg PO Q12HR #60 tablet 04/02/21 04/03/21 Rx apixaban [Eliquis] 2.5 mg PO Q12HR #60 tablet 04/02/21 04/03/21 Rx aspirin 81 mg PO QAM #30 tablet 04/02/21 04/03/21 Rx metoprolol tartrate 25 mg PO Q12HR #60 tablet 04/02/21 04/03/21 Rx Allergies Allergy/AdvReac Type Severity Reaction Status Date / Time No Known Allergies Allergy Verified 04/03/21 11:50 Vital Signs Vital Signs - 24 hr 04/03/21 08:00 04/03/21 08:01 04/03/21 08:02 Temperature Pulse Rate 101 H 112 H 106 H Respiratory Rate 16 Blood Pressure 129/88 Pulse Oximetry 04/03/21 08:15 04/03/21 08:16 04/03/21 08:31 Temperature Pulse Rate 119 H 128 H 107 H Respiratory Rate 18 18 15 Blood Pressure 125/92 H 114/79 Pulse Oximetry 92 04/03/21 08:32 04/03/21 08:45 04/03/21 08:46 Temperature Pulse Rate 112 H 124 H 112 H Respiratory Rate 17 19 18 Blood Pressure 136/80 Pulse Oximetry 04/03/21 08:47 04/03/21 09:00 04/03/21 09:01 Temperature Pulse Rate 103 H 115 H 108 H Respiratory Rate 13 18 Blood Pressure 129/81 Pulse Oximetry 04/03/21 09:15 04/03/21 09:16 04/03/21
[2021-04-04 08:24] LABS: Glucose Point of Care 114 mg/dl (65-105)
[2021-04-04] MEDS: AMIODARONE HCL 200 MG TABLET PO ×2 (09:42→20:34)
[2021-04-04] MEDS: ASPIRIN 81 MG ENTERIC TABLET PO (09:42)
[2021-04-04] MEDS: APIXABAN 2.5 MG TABLET PO ×2 (09:43→20:34)
[2021-04-04] MEDS: METOPROLOL TARTRATE 25 MG TABLET PO ×2 (09:43→20:35)
[2021-04-04] MEDS: PIOGLITAZONE HCL 15 MG TAB PO (09:44)
[2021-04-04 12:27] LABS: Glucose Point of Care 147 mg/dl (65-105)
[2021-04-04] MEDS: ACETAMINOPHEN 500 MG TABLET PO (15:42)
[2021-04-04 16:32] LABS: Glucose Point of Care 153 mg/dl (65-105)
[2021-04-04 21:36] LABS: Glucose Point of Care 130 mg/dl (65-105)
[2021-04-05] VITALS (12 sets, daily range): BP systolic 112–133; BP diastolic 63–92; PULSE 74–126; RESP 16–18; TEMP 35.9–36.9; O2SAT 93–98
[2021-04-05] MEDS: ACETAMINOPHEN 500 MG TABLET PO (01:46)
[2021-04-05 07:53] LABS: Glucose Point of Care 127 mg/dl (65-105)
[2021-04-05] MEDS: APIXABAN 2.5 MG TABLET PO ×2 (10:19→21:30)
[2021-04-05] MEDS: METOPROLOL TARTRATE 25 MG TABLET PO ×2 (10:19→21:30)
[2021-04-05] MEDS: AMIODARONE HCL 200 MG TABLET PO ×2 (10:19→21:30)
[2021-04-05] MEDS: PIOGLITAZONE HCL 15 MG TAB PO (10:19)
[2021-04-05] MEDS: ASPIRIN 81 MG ENTERIC TABLET PO (10:19)
[2021-04-05 11:59] LABS: Glucose Point of Care 136 mg/dl (65-105)
--- NOTE | 2021-04-05 12:41 | PM.IMPN ---
Progress Note: A&P Assessment and Plan (1) Weakness: Code(s): R53.1 - Weakness Status: Acute Assessment and Plan: patient is 75-year-old female initially admitted with generalized weakness nurse found to have a significantly elevated tropes upon arrival her tropes were 0.280 and climbed 57 seen by cardiology due to patient dementia concern the patient may not remains is calm and still during catheterization and elevated Scr the procedure was not done, I saw the patient 04/02/2021 at that time patient was quite weak and would not sit up in the bed and assisted was recommended however patient refused and was discharged with home health with her however patient was brought back to the hospital again as patient was not able to take care of her, patient states she is too weak to move. patient has no other complaint see denies any chest pain shortness of breath palpitation. clinically patient remains stable. 04/05/2021Interval history: patient remains clinically confused unable to provide any review of symptom, and appears quite ill, spoke with the patient's patient is DNR, after discussing with the patient we have on the chart DNR, nurse De La Paz was present in the room. will continue to monitor patient may discuss possible hospice tomorrow to the career advisor. (2) Unable to ambulate: Code(s): R26.2 - Difficulty in walking, not elsewhere classified Status: Acute Assessment and Plan: most likely secondary debility will have PT OT evaluate the patient and further recommendation to follow (3) Atrial fibrillation: Qualifiers: Atrial fibrillation type: unspecified Qualified Code(s): I48.91 - Unspecified atrial fibrillation Code(s): I48.91 - Unspecified atrial fibrillation Status: Acute Assessment and Plan: rate is controlled will continue home regimen (4) NSTEMI (non-ST elevated myocardial infarction): Code(s): I21.4 - Non-ST elevation (NSTEMI) myocardial infarction Status: Acute Assessment and Plan: patient with significant elevated tropes patient is not a candidate for cardiac catheterization due to dementia and acute kidney injury Subjective Date/time seen: 04/05/21 12:41 patient is 75-year-old female initially admitted with generalized weakness nurse found to have a significantly elevated tropes upon arrival her tropes were 0.280 and climbed 57 seen by cardiology due to patient dementia concern the patient may not remains is calm and still during catheterization and elevated Scr the procedure was not done, I saw the patient 04/02/2021 at that time patient was quite weak and would not sit up in the bed and assisted was recommended however patient refused and was discharged with home health with her however patient was brought back to the hospital again as patient was not able to take care of her, patient states she is too weak to move. patient has no other complaint see denies any chest pain shortness of breath palpitation. clinically patient remains stable. 04/05/2021Interval history: patient remains clinically confused unable to provide any review of symptom, and appears quite ill, spoke with the patient's patient is DNR, after discussing with the patient we have on the chart DNR, nurse De La Paz was present in the room. will continue to monitor patient may discuss possible hospice tomorrow to the career advisor. Review of Systems Review of Systems: All systems reviewed & are unremarkable except as noted in HPI and below Exam Narrative: Patient is comfortable, NAD HEENT: eyes are clear and none icteric LUNGS: normal respiratory effort ABD: not distended Lower extremities: no edema SKIN: nonjaundiced Neuro: grossly intact. Objective Data Vital Signs Vital Signs: Vital Signs - 24 hr 04/04/21 14:15 04/04/21 16:00 04/04/21 20:00 Temperature 98.1 F Puls
--- NOTE | 2021-04-05 12:48 | PM.CNCAR ---
Assessment and Plan Additional Plan 75-year-old lady with: Recent non ST-elevation ND with moderately depressed LV function she continues to have paroxysmal atrial fibrillation which is not of any great concern. The low very long half-life of amiodarone is such that I would not recommend advancing the dosage at this time particularly since she when he is in atrial fibrillation is not particularly tachycardic or symptomatic. Her generalized weakness is the principal concern for bringing her back to the hospital and sounds like she will probably need to be discharged to a skilled care facility rather than to her home. There are no additional cardiac recommendations to make at this time. If she still in the hospital tomorrow follow-up will then continue with Dr. Duke. Jaleel Butler MD [facility] History of Present Illness History of Present Illness Consult date/time: 04/05/21 12:48 Consult reason: atrial fibrillation Reason For Visit: Weakness/unable to ambulate and walk without ema Narrative: This is a 75-year-old lady who I saw briefly last couple of weeks ago in the emergency room in the setting of acute coronary syndrome. She is seen in normally receives her care with . She presented to the hospital couple of weeks ago with generalized weakness and was found to have evidence of a non ST elevation ND. She had a significant troponin rise and clear evidence of ND. Because of a state of dementia, DNR status and lack of acute ST segment changes she was not brought to the cardiac catheterization lab. It was not felt that she could adequately participate in having a catheterization done safely. She was treated medically. Her left ventricular ejection fraction was moderately depressed with an EF of 35-40% by echo after this event. She did have a substantial troponin rise. She also had intermittent atrial fibrillation for which she is being treated with amiodarone. She was just discharged from the hospital a couple of days ago and returned within 24 hours because her states she was so weak he could not take care of her any longer. I have been asked to see her again because of arrhythmias. The stated reason for consult is ventricular tachycardia. I am covering for Dr. Duke in there for seeing her in consultation today. She is currently comfortable and denies any complaints although his she is supine in bed was seated up earlier eating her lunch. Denies any symptoms of chest pain dyspnea palpitations syncope or near syncope. I have reviewed all of her telemetry strips and ECGs that are on the chart. It seems clear that she does have paroxysmal atrial fib still with at times in sinus rhythm and at times atrial fibrillation. When she was in atrial fib she was not particularly symptomatic or tachycardic. I do not see any electrocardiograms or ECG strips that look like ventricular tachycardia in my opinion. According to the apparently the plans are now to discharge her eventually to a skilled care facility because she is so weak he cannot take care of her. Review of Systems Constitutional: Constitutional: Reports weakness Eyes: Eyes: Reports no additional eye complaints ENT: Reports system reviewed and no additional complaints, except as documented Cardiovascular: Cardiovascular: Reports no additional cardiovascular complaints Respiratory: Respiratory: Reports no additional respiratory complaints Gastrointestinal: Gastrointestinal: Reports no additional gastrointestinal complaints Musculoskeletal: Musculoskeletal: Reports arthralgias Integumentary/Breasts: Skin/Breast: Reports system reviewed and no additional complaints, except as docu Neurologic: Reports system reviewed and no additional complaints, except as documented Endocrine: Endocrine: Reports no additional endocrine complaints Hematologic/Lymphatic: Hematologic/Lymphatic: Reports no additional hematologic/lymphatic complaints Allergic/Immunologic: Allergic
[2021-04-05 16:23] LABS: Glucose Point of Care 139 mg/dl (65-105)
[2021-04-05 22:07] LABS: Glucose Point of Care 147 mg/dl (65-105)
[2021-04-06] VITALS (12 sets, daily range): BP systolic 104–123; BP diastolic 68–71; PULSE 64–80; RESP 14–18; TEMP 36.2–37.1; O2SAT 97–100
[2021-04-06] MEDS: ACETAMINOPHEN 500 MG TABLET PO ×2 (06:32→15:59)
[2021-04-06 06:46] LABS: Hematocrit 36.2 % (37.0-47.0); Hemoglobin 11.7 g/dL (12.0-15.0); Mean Corpuscular HGB Conc 32.3 g/dl (32-36); Mean Corpuscular Hemoglobin 32.2 pg (26-34); Mean Corpuscular Volume 99.7 fl (80-100); Mean Platelet Volume 10.8 fl (7.4-10.4); Platelet Count Result 311 k/mm3 (150-375); Red Blood Count 3.63 M/mm3 (4.2-5.4); Red Cell Distribution Width 14.9 % (11.5-14.5); White Blood Count 7.4 K/mm3 (4.5-10.0)
[2021-04-06 06:59] LABS: Albumin Level 3.6 g/dL (3.5-5.1); Anion Gap 12 mmol/L (8-16); Blood Urea Nitrogen 53 mg/dL (7-17); Calcium 8.9 mg/dL (8.4-10.2); Carbon Dioxide 19 mmol/L (22-30); Chloride 101 mmol/L (98-107); Estimated CRCL calculation 13 ml/min; Estimated Glomerular Filt Rate 20; Glucose 147 mg/dL (65-110); Magnesium 2.5 mg/dL (1.6-2.3); Phosphorus 4.8 mg/dL (2.5-4.5); Potassium 4.7 mmol/L (3.4-5.0); Sodium 132 mmol/L (137-145)
[2021-04-06 08:13] LABS: Glucose Point of Care 137 mg/dl (65-105)
[2021-04-06] MEDS: ASPIRIN 81 MG ENTERIC TABLET PO (08:29)
[2021-04-06] MEDS: AMIODARONE HCL 200 MG TABLET PO ×2 (08:29→22:16)
[2021-04-06] MEDS: APIXABAN 2.5 MG TABLET PO ×2 (08:29→22:20)
[2021-04-06] MEDS: PIOGLITAZONE HCL 15 MG TAB PO (08:29)
[2021-04-06] MEDS: METOPROLOL TARTRATE 25 MG TABLET PO ×2 (08:30→22:20)
--- NOTE | 2021-04-06 10:36 | PCOTNOTE ---
Attempted to complete OT treatment, per spouse patient will be going hospice and does not want patient to participate with therapy at this time. Will discharge from skilled OT at this time.
--- NOTE | 2021-04-06 11:06 | PC.NURSE ---
MD Marte called this morning, pt family requesting hospice and comfort care. refusing therapy this morning for . MD Marte ordered hospice consult. Care coordination informed. requesting hospice care and discharge to [facility].
[2021-04-06 11:15] LABS: Glucose Point of Care 185 mg/dl (65-105)
--- NOTE | 2021-04-06 16:14 | PM.IMPN ---
Progress Note: A&P Assessment and Plan (1) Weakness: Code(s): R53.1 - Weakness Status: Acute Assessment and Plan: patient is 75-year-old female initially admitted with generalized weakness nurse found to have a significantly elevated tropes upon arrival her tropes were 0.280 and climbed 57 seen by cardiology due to patient dementia concern the patient may not remains is calm and still during catheterization and elevated Scr the procedure was not done, I saw the patient 04/02/2021 at that time patient was quite weak and would not sit up in the bed and care home was recommended however patient refused and was discharged with home health with her however patient was brought back to the hospital again as patient was not able to take care of her, patient states she is too weak to move. patient has no other complaint see denies any chest pain shortness of breath palpitation. clinically patient remains stable. 04/05/2021Interval history: patient remains clinically confused unable to provide any review of symptom, and appears quite ill, spoke with the patient's patient is DNR, after discussing with the patient we have on the chart DNR, nurse De La Paz was present in the room. will continue to monitor patient may discuss possible hospice tomorrow to the healthcare project manager. 04/06/2021 Interval history: Today patient remains clinically stable confused, unable to participate in any physical activities, and remain in the bed. Today patient who is her POA has decided to place her under hospice care. patient will be discharged tomorrow. (2) Unable to ambulate: Code(s): R26.2 - Difficulty in walking, not elsewhere classified Status: Acute Assessment and Plan: most likely secondary debility will have PT OT evaluate the patient and further recommendation to follow (3) Atrial fibrillation: Qualifiers: Atrial fibrillation type: unspecified Qualified Code(s): I48.91 - Unspecified atrial fibrillation Code(s): I48.91 - Unspecified atrial fibrillation Status: Acute Assessment and Plan: rate is controlled will continue home regimen (4) NSTEMI (non-ST elevated myocardial infarction): Code(s): I21.4 - Non-ST elevation (NSTEMI) myocardial infarction Status: Acute Assessment and Plan: patient with significant elevated tropes patient is not a candidate for cardiac catheterization due to dementia and acute kidney injury Subjective Date/time seen: 04/06/21 16:14 patient is 75-year-old female initially admitted with generalized weakness nurse found to have a significantly elevated tropes upon arrival her tropes were 0.280 and climbed 57 seen by cardiology due to patient dementia concern the patient may not remains is calm and still during catheterization and elevated Scr the procedure was not done, I saw the patient 04/02/2021 at that time patient was quite weak and would not sit up in the bed and care home was recommended however patient refused and was discharged with home health with her however patient was brought back to the hospital again as patient was not able to take care of her, patient states she is too weak to move. patient has no other complaint see denies any chest pain shortness of breath palpitation. clinically patient remains stable. 04/05/2021Interval history: patient remains clinically confused unable to provide any review of symptom, and appears quite ill, spoke with the patient's patient is DNR, after discussing with the patient we have on the chart DNR, nurse De La Paz was present in the room. will continue to monitor patient may discuss possible hospice tomorrow to the healthcare project manager. 04/06/2021 Interval history: Today patient remains clinically stable confused, unable to participate in any physical activities, and remain in the bed. Today patient who is her POA has decided to
[2021-04-06 16:25] LABS: Glucose Point of Care 120 mg/dl (65-105)
--- NOTE | 2021-04-06 16:38 | PM.PNCARD ---
Progress Note: A&P Assessment and Plan (1) Systolic dysfunction: Code(s): I51.9 - Heart disease, unspecified Status: Acute Assessment and Plan: Moderate. Euvolemic. On Metoprolol and Losartan. (2) PAF (paroxysmal atrial fibrillation): Code(s): I48.0 - Paroxysmal atrial fibrillation Status: Acute Assessment and Plan: She does have paroxysmal atrial fib. No symptomatic and not very rapid. On Amiodarone to keep her in sinus rhythm as much as possible. On Eliquis. No evidence of VT. She is awaiting placement as her is unable to care for her at home. Will sign off. Please call with any questions/concerns. Have patient f/u with me in 1-2 weeks. (3) Dyslipidemia: Code(s): E78.5 - Hyperlipidemia, unspecified Status: Chronic Assessment and Plan: On Rosuvastatin. (4) CAD (coronary artery disease): Code(s): I25.10 - Atherosclerotic heart disease of [place] coronary artery without angina pectoris Status: Acute Assessment and Plan: On aspirin and Metoprolol. Subjective Date/time seen: 04/06/21 16:[address] Butler. Patient denies chest pain or sob. She is confused. Exam Const: General: cooperative, healthy appearing and comfortable Resp: Auscultation: clear to auscultation bilaterally, no crackles, no rales, no rhonchi and no wheezes Cardio: Jugular venous distension: no JVD Rate: regular rate Rhythm: regular rhythm Heart sounds: no murmurs Peripheral pulses: dorsalis pedis present GI: GI Palp: No abdominal tenderness and Yes Soft to palpation Neuro: General: oriented to person, oriented to place and No oriented to time Extrem: Right lower extremity: no edema Left lower extremity: no edema Objective Data Vital Signs Vital Signs: Vital Signs - 24 hr 04/05/21 20:00 04/05/21 20:17 04/05/21 21:30 Temperature Pulse Rate 86 78 Respiratory Rate Blood Pressure Pulse Oximetry 98 96 04/05/21 22:00 04/06/21 00:00 04/06/21 04:00 Temperature 97.5 F L Pulse Rate 78 74 67 Respiratory Rate 18 Blood Pressure 133/77 Pulse Oximetry 94 04/06/21 06:00 04/06/21 08:00 04/06/21 08:29 Temperature 98.7 F Pulse Rate 71 72 80 Respiratory Rate 18 Blood Pressure 104/71 Pulse Oximetry 100 04/06/21 08:30 04/06/21 12:00 04/06/21 14:41 Temperature 97.7 F Pulse Rate 80 64 68 Respiratory Rate 14 Blood Pressure 117/68 Pulse Oximetry 97 Intake/Output Intake/Output: Intake & Output 04/03/21 04/04/21 04/05/21 04/06/21 23:59 23:59 23:59 23:59 Intake Total 1030 1900 480 340 Output Total 200 50 Balance 830 1900 480 290 Meds/Results Medications: Active Medications Generic Name Dose Route Start Last Admin Trade Name Freq PRN Reason Stop Dose Admin Acetaminophen 500 mg 04/04/21 15:28 04/06/21 15:59 Acetaminophen 500 Mg Tablet PO 500 mg Q8HR PRN Administration Mild Pain (1-3) or Fever Amiodarone HCl 200 mg 04/04/21 09:00 04/06/21 08:29 Amiodarone Hcl 200 Mg Tablet PO 200 mg Q12HR ORAL Administration Apixaban 2.5 mg 04/04/21 09:00 04/06/21 08:29 Apixaban 2.5 Mg Tablet PO 2.5 mg Q12HR ORAL Administration Aspirin 81 mg 04/04/21 09:00 04/06/21 08:29 Aspirin 81 Mg Enteric Tablet PO 81 mg QAM ORAL Administration Dextrose 12.5 gm 04/03/21 23:56 Dextrose 50% 25 Gm/50 Ml Syringe IV PUSH PRN PRN Hypoglycemia Protocol Glucagon 1 mg 04/03/21 23:56 Glucagon For Inj 1 Mg Vial IM PRN PRN Hypoglycemia Protocol Glucose 15 gm 04/03/21 23:56 Glucose Oral Gel 15 Gm Of Glucse In 37.5 Gm Tube PO PRN PRN Hypoglycemia Protocol Dextrose 1,000 mls @ 100 mls/hr 04/03/21 23:56 Dextrose 5% 1,000 Ml IVPB PRN PRN Hypoglycemia Protocol Insulin Aspart 2 - 5 units 04/04/21 08:00 04/06/21 11:17 Insulin Aspart (*Bkc) 100 Units/Ml SUB-Q Not Given TIDWM ORAL
[2021-04-07 00:18] VITALS: O2SAT 96
[2021-04-07 05:51] VITALS: BP 134/79; PULSE 64; RESP 18; TEMP 36.4; O2SAT 100
[2021-04-07 07:02] LABS: Hematocrit 38.2 % (37.0-47.0); Hemoglobin 12.3 g/dL (12.0-15.0); Mean Corpuscular HGB Conc 32.2 g/dl (32-36); Mean Corpuscular Hemoglobin 31.9 pg (26-34); Mean Corpuscular Volume 99.2 fl (80-100); Platelet Count Result 312 k/mm3 (150-375); Red Blood Count 3.85 M/mm3 (4.2-5.4); White Blood Count 8.7 K/mm3 (4.5-10.0)
[2021-04-07 07:24] LABS: Albumin Level 3.5 g/dL (3.5-5.1); Anion Gap 13 mmol/L (8-16); Blood Urea Nitrogen 60 mg/dL (7-17); Calcium 8.9 mg/dL (8.4-10.2); Carbon Dioxide 18 mmol/L (22-30); Chloride 101 mmol/L (98-107); Estimated CRCL calculation 12 ml/min; Estimated Glomerular Filt Rate 18; Glucose 147 mg/dL (65-110); Phosphorus 4.9 mg/dL (2.5-4.5); Potassium 4.7 mmol/L (3.4-5.0); Sodium 132 mmol/L (137-145)
[2021-04-07 08:00] LABS: Glucose Point of Care 133 mg/dl (65-105)
[2021-04-07 08:05] VITALS: PULSE 64
[2021-04-07] MEDS: ASPIRIN 81 MG ENTERIC TABLET PO (08:05)
[2021-04-07] MEDS: PIOGLITAZONE HCL 15 MG TAB PO (08:05)
[2021-04-07] MEDS: APIXABAN 2.5 MG TABLET PO (08:05)
[2021-04-07] MEDS: AMIODARONE HCL 200 MG TABLET PO (08:05)
[2021-04-07 08:50] VITALS: O2SAT 99
--- NOTE | 2021-04-07 09:04 | PM.DS ---
DS: Admitting Diagnosis Discharge Date 04/07/2021 Admitting Diagnosis Generalized weakness DS: Discharge Diagnosis Discharge Diagnosis (1) Weakness: Code(s): R53.1 - Weakness Status: Acute Assessment and Plan: This is a 75-year-old female initially admitted with generalized weakness nurse found to have a significantly elevated troponin upon arrival her troponin were 0.280 and climbed 57 seen by cardiology due to patient dementia concern the patient may not remains is calm and still during catheterization and elevated Scr the procedure was not done. She was managed medically with IV heparin drip and remained asymptomatic. To subsequently discharged home under care by her however was needed to be brought right back very next day with weakness and patient's not being able to take care of her. She was noted to have proximal atrial fibrillation however cardiology consulted suggested to continue on current dosing of amiodarone. Further discussion was made with the hospital and by my colleague and a decision was made to enroll her in hospice care. With the help of career and technology education teacher, she was accepted at a nursing facility (2) Unable to ambulate: Code(s): R26.2 - Difficulty in walking, not elsewhere classified Status: Acute Assessment and Plan: most likely secondary debility will have PT OT evaluate the patient and recommends rehab (3) Atrial fibrillation: Qualifiers: Atrial fibrillation type: unspecified Qualified Code(s): I48.91 - Unspecified atrial fibrillation Code(s): I48.91 - Unspecified atrial fibrillation Status: Acute Assessment and Plan: rate is controlled will continue home regimen will continue the same regimen at discharge (4) NSTEMI (non-ST elevated myocardial infarction): Code(s): I21.4 - Non-ST elevation (NSTEMI) myocardial infarction Status: Acute Assessment and Plan: patient with significant elevated tropes patient is not a candidate for cardiac catheterization due to dementia and acute kidney injury DS: Summary Hospital Course Hospital Course: See above Time Spent with Patient Time attestation: Total time spent providing and/or coordinating discharge services: 45 minutes Exam Narrative: Patient is comfortable, NAD HEENT: eyes are clear and none icteric LUNGS: normal respiratory effort ABD: not distended Lower extremities: no edema SKIN: nonjaundiced Neuro: grossly intact. DS: Data Data Completed and Pending Labs on day of discharge: Labs from last 24 hours 04/07/21 04/07/21 04/07/21 07:57 06:40 06:40 WBC 8.7 RBC 3.85 L Hgb 12.3 Hct 38.2 MCV 99.2 MCH 31.9 MCHC 32.2 RDW 15.0 H Plt Count 312 MPV 11.0 H Sodium 132 L Potassium 4.7 Chloride 101 Carbon Dioxide 18 L Anion Gap 13 BUN 60 H Creatinine 2.60 H Estim Creat Clear Calc 12 Estimated GFR 18 L Glucose 147 H POC Capillary Glucose 133 H Calcium 8.9 Phosphorus 4.9 H Albumin 3.5 04/06/21 04/06/21 16:20 11:13 WBC RBC Hgb Hct MCV MCH MCHC RDW Plt Count MPV Sodium Potassium Chloride Carbon Dioxide Anion Gap BUN Creatinine Estim Creat Clear Calc Estimated GFR Glucose POC Capillary Glucose 120 H 185 H Calcium Phosphorus Albumin Imaging Radiologist's impression: ITS Impressions Chest X-Ray 04/03/21 06:29 Impression: 1: Cardiomegaly with mild interstitial edema. 2: Small pleural effusions. Discharge Plan Discharge Attending physician on discharge: Heriberto Rehman Consulting providers: Jaleel Butler Discharging Clinician: Heriberto Rehman Anticipated Discharge Date/Time: 04/07/21 09:01 Patient Disposition: Hospice - Medical Facility Activity: as tolerated Diet: as tolerated and heart healthy Discharge Instructions: Per Care Coordination
[2021-04-07 10:13] VITALS: PULSE 64; RESP 18; O2SAT 99
--- NOTE | 2021-04-07 10:31 | PC.NURSE ---
Report called to [facility], art glass setter to transport. Awaiting apple picking supervisor. Discharging to [facility] with [facility] care. covid swab performed this morning, and sent to lab for analysis.
[2021-04-07 11:00] LABS: EDCOVIDSCREEN Negative (Negative)
--- NOTE | 2021-04-07 11:07 | PC.NURSE ---
On 04/07/21, the student, [ Larissa Lr], provided care and completed [employer] documentation on this patient. I have reviewed the student's documentation and agree with the findings.
== END 2021-04-07 11:26 | disposition hospice, inpatient (51) | DRG 682 ==
LOC: ANHED 08:12 → ANH3MEDSUR 11:35
PROVIDERS: Emergency Medicine; Physician Assistant; Admitting Provider Family Medicine; Emergency Provider Emergency Medicine; PCP Internal Medicine; Visit Provider Internal Medicine
DX: N17.9 Acute kidney failure, unspecified (principal); I21.4 Non-ST elevation (NSTEMI) myocardial infarction; R53.1 Weakness; I48.0 Paroxysmal atrial fibrillation; I11.9 Hypertensive heart disease without heart failure; Z20.822 Contact with and (suspected) exposure to COVID-19; I25.10 Atherosclerotic heart disease of native coronary artery without angina pectoris; R26.2 Difficulty in walking, not elsewhere classified; F03.90 Unspecified dementia, unspecified severity, without behavioral disturbance, psychotic disturbance, mood disturbance, and anxiety; E78.5 Hyperlipidemia, unspecified; Z66 Do not resuscitate; Z79.899 Other long term (current) drug therapy; Z87.891 Personal history of nicotine dependence; Z98.42 Cataract extraction status, left eye; Z98.41 Cataract extraction status, right eye; Z96.1 Presence of intraocular lens
CPT/HCPCS: 36415; 71045; 80048; 80053; 80069; 80076; 81001; 82550; 82948; 83036; 83605; 83735; 83880; 84443; 84484; 85025; 85027; 85610; 85730; 87086; 87088; 87426; 93005; 96361; 96374; 96376; 97110; 97161; 97165; 97535; 99285; A9270; C9803; G0378; J0131; J7030